=== PATIENT | female | born 1960 | race Caucasian/White ===

== ENCOUNTER 2018-03-31 03:01 | Inpatient (IN) ==
[2018-03-31] MEDS ORDERED: Sod Chloride 0.9% Inj 1,000 ML IV.SIG SCH (03:30)
[2018-03-31 03:49] LABS: Baso % (Auto) 0.1 % (0.0-2.0); Hematocrit 40.1 % (35.0-46.0); Hemoglobin 13.8 gm/dL (11.6-15.3); Lymph # (Auto) 0.8 th/mm3 (1.0-4.8); Lymph % (Auto) 5.3 % (9.0-44.0); Mean Corpuscular HGB Conc 34.4 % (32.0-36.0); Mean Corpuscular Hemoglobin 28.5 pg (27.0-34.0); Mean Corpuscular Volume 82.9 fL (80.0-100.0); Mean Platelet Volume 10.3 fL (7.0-11.0); Mono # (Auto) 0.3 th/mm3 (0.0-0.9); Mono % (Auto) 1.9 % (0.0-8.0); Neut # (Auto) 14.1 th/mm3 (1.8-7.7); Neut % (Auto) 92.7 % (16.0-70.0); Platelet Count 260 th/mm3 (150-450); Red Blood Count 4.84 mil/mm3 (4.00-5.30); Red Cell Distribution Width 14.5 % (11.6-17.2); White Blood Count 15.2 th/mm3 (4.0-11.0)
[2018-03-31] MEDS ORDERED: Piperacil/Tazo 4.5 GM Premix 4.5 GM/100 ML BAG IV.SIG ONE (03:54)
[2018-03-31] MEDS ORDERED: Vancomycin Inj 1 GM/200 ML PIGGYBACK IV.SIG ONE (03:54)
--- NOTE | 2018-03-31 04:02 | XR ---
EXAM DATE: 03/31/2018 3:23 AM EDT AGE/SEX: 58 years / Female INDICATIONS: Fever. Altered mental status. CLINICAL DATA: This is the patient's initial encounter. Patient reports that signs and symptoms have been present for 1 day and indicates a pain score of Nonresponsive. MEDICAL/SURGICAL HISTORY: . Diabetes. Hypertension. section. COMPARISON: No prior exams available for comparison. FINDINGS: A single AP view of the chest demonstrates the lungs to be symmetrically aerated without evidence of mass, infiltrate or effusion. The cardiomediastinal contours are unremarkable. Osseous structures a re intact. CONCLUSION: No acute cardiopulmonary process. Electronically signed by: Tavo Funez MD 03/31/2018 4:00 AM EDT
[2018-03-31 04:05] LABS: Bacteria,Urine Rare /hpf; Bilirubin,Urine Negative (Negative); Clarity,Urine Hazy (Clear); Color,Urine Yellow (Yellw/Straw); Glucose,Urine (UA) Negative (Negative); Leukocyte Esterase,Urine Trace (Negative); Mucus,Urine Few /lpf (Occasional); Nitrite,Urine Negative (Negative); Specific Gravity,Urine 1.025 (1.002-1.035); Squamous Epithelial Cell,Urine 1 /hpf (0-5)
[2018-03-31 04:06] LABS: Amphetamine Screen,Urine Pos (Neg); Barbiturate Screen,Urine Neg (Neg); Cannabinoid Screen,Urine Neg (Neg); Cocaine Screen,Urine Neg (Neg)
[2018-03-31 04:13] LABS: Alanine Aminotransferase 24 U/L (10-53); Albumin 4.1 g/dL (3.4-5.0); Alkaline Phosphatase 120 U/L (45-117); Anion Gap 10 meq/L (5-15); Aspartate Aminotransferase 22 U/L (15-37); Blood Urea Nitrogen 19 mg/dL (7-18); Calcium 8.9 mg/dL (8.5-10.1); Carbon Dioxide 24.5 meq/L (21.0-32.0); Chloride 106 meq/L (98-107); Glomerular Filtration Rate 61 mL/min (>89); Glucose,Random 153 mg/dL (74-106); Magnesium 1.9 mg/dL (1.5-2.5); Potassium 4.2 meq/L (3.5-5.1); Sodium 140 meq/L (136-145); Total Protein 8.2 g/dL (6.4-8.2)
[2018-03-31 04:15] LABS: Opiate Screen,Urine Neg (Neg)
[2018-03-31] MEDS ORDERED: Vancomycin Inj 1,000 MG in Sodium Chlor 0.9% Inj 250 ML IV.SIG ONE (04:15)
--- NOTE | 2018-03-31 04:25 | CT ---
EXAM DATE: 03/31/2018 3:26 AM EDT AGE/SEX: 58 years / Female INDICATIONS: Altered mental status. CLINICAL DATA: This is the patient's initial encounter. Patient reports that signs and symptoms have been present for 1 day and indicates a pain score of Nonresponsive. MEDICAL/SURGICAL HISTORY: Non-responsive. Non-responsive. RADIATION DOSE: 56.35 CTDI (mGy) COMPARISON: [facility] – [place], [place] HEAD W/O CONTRAST, 12/09/2017. . TECHNIQUE: CT of the head without contrast. Using automated exposure control and adjustment of the mA and/or kV according to patient size, radiation dose was kept as low as reasonably achievable to ob tain optimal diagnostic quality images. DICOM format image data is available electronically for revi ew and comparison. FINDINGS: Cerebrum: The ventricles are mildly dilated No evidence of midline shift, mass lesion, hemorrhage o r acute infarction. No extraaxial fluid collections are seen. Posterior Fossa: The cerebellum and brainstem are intact. The 4th ventricle is midline. The cerebe llopontine angle is unremarkable. Extracranial: The visualized portion of the orbits is intact. Skull: The calvaria is intact. No evidence of skull fracture. CONCLUSION: 1. No acute abnormality is seen. 2. Mild atrophy. . Electronically signed by: Tavo Funez MD 03/31/2018 4:23 AM EDT
--- NOTE | 2018-03-31 05:33 | ED ---
HPI General Chief Complaint: Altered Mental Status Stated Complaint: mental status Time Seen by Provider: 03/31/18 03:23 Source: EMS Mode of arrival: EMS Limitations: altered mental status History of Present Illness HPI narrative: 58-year-old female came to the emergency room by EMS for altered mental status. Patient was constantly screaming with a high-pitched sound and was difficult to comprehend. She was not following commands. As per EMS she was like this the entire right. Her called 911 since as per him she became like this couple hours prior to him calling EMS. This is not her baseline. The also mentioned that she was seen in the emergency room 2 days ago and was diagnosed with UTI. She was discharged home on antibiotic but the prescription was not filled. Patient was combative upon arrival. The last time patient was seen normal was not confirmed at this point. The was not present with her or in the department. MD complaint: Reports altered mental status Onset (ago): unknown Consistency of symptoms: waxing and waning Related Data Home Medications Medication Instructions Recorded Confirmed insulin glargine [Lantus U-100 22 unit SUB-Q DAILY 12/09/17 03/22/18 Insulin] Previous Rx's Medication Instructions Recorded bupropion HCl [Wellbutrin XL] 300 mg PO QAM #3 tab 03/22/18 levothyroxine [Synthroid] 25 mcg PO DAILY #3 tab 03/22/18 ranitidine HCl [Zantac] 150 mg PO BID #14 tab 03/22/18 insulin aspart U-100 [Novolog See Label Instructions .ROUTE 03/29/18 Flexpen U-100 Insulin] .COMPLEX #15 ml levofloxacin [Levaquin] 750 mg PO DAILY #7 tab 04/02/18 Allergies Allergy/AdvReac Type Severity Reaction Status Date / Time No Known Allergies Allergy Unverified 03/31/18 03:04 Review of Systems ROS Unobtainable ROS Unobtainable: unobtainable due to mental status ROS: all other systems reviewed are negative FOR[facility]LY [facility] Medical History Medical History Cataract (Acute) delivery delivered (Acute) Depressed (Acute) Diabetes (Acute) Hypertension (Acute) Hypothyroid (Acute) Social History Social History Substance History: Unable to Obtain Second Hand Smoke Exposure: No Smoking Status: Cognitive impairment How Often Do You Have a Drink Containing Alcohol: Unable to Obtain Recent Travel in [place] within the Last 8 Weeks: No Recent Out of Country Travel within the Last 8 Weeks: No Immunization History Tetanus Immunization: Unable to Assess Exam Narrative Exam Narrative: GENERAL: Altered mental status, combative, agitated, not following commands, significant distress SKIN: Focused skin assessment warm/dry. Disheveled HEAD: Atraumatic. Normocephalic. EYES: Pupils equal and round. No scleral icterus. No injection or drainage. ENT: No nasal bleeding or discharge. Dry mucous membrane and coated tongue NECK: Trachea midline. No JVD. CARDIOVASCULAR: Regular rate and rhythm. No murmur appreciated. RESPIRATORY: No accessory muscle use. Clear to auscultation. Breath sounds equal bilaterally. GASTROINTESTINAL: Abdomen soft, non-tender, nondistended. Hepatic and splenic margins not palpable. MUSCULOSKELETAL: No obvious deformities. No clubbing. No cyanosis. No edema. NEUROLOGICAL: GCS of 12 PSYCHIATRIC: Agitated, poor insight and judgment Course Initial Documented Vital Signs Pulse Rate 118 H 03/31/18 03:06 Respiratory Rate 18 03/31/18 03:06 Pulse Oximetry 97 03/31/18 03:06 Last Documented Vital Signs Temperature 98.8 F 04/02/18 12:00 Pulse Rate 70 04/02/18 12:00 Respiratory Rate 20 04/02/18 12:00 Blood Pressure 145/85 H 04/02/18 12:00 Pulse Oximetry 99 04/02/18 12:00 Critical Care Time Critical Care Time: Yes Total Critical Care Time: 45 Attestation: Aggregate critical care time was 45 minutes. Time to perform other separately billable procedures was not included in the critical care time. My time did not include minutes spent treating any other patients simultaneously or on activities that did not directly contribute to the patient's treatment. The services I provided to this patient were to treat and/or prevent clinically significant deterioration that could result in: Altered mental status, delirium, rule out meningitis, sepsis I provided critical care services requiring my management, as noted below: Chart data review, documentation time, medication orders and management, vital sign assessments/reviewing monitor data, ordering and reviewing lab tests, ordering and interpreting/reviewing x-rays and diagnostic studies, care of the patient and discussion of the patient with the admitting physicians. Medical Decision Making MDM Narrative Medical decision making narrative: Patient's medical record was reviewed on the computer. On the visit of 03/29/2018 it was noticed on physician's documentation the patient was fully alert, oriented and answering questions appropriately. The urine culture is growing gram-negative rods. Given her acute mental status change and noncompliance to antibiotic sepsis and meningitis was heavily considered. Patient was given IV antibiotics for those. White blood cell count was elevated with significant left shift. Eventually when rest of the blood test results started to come back it was noticed that lactic acid however was negative. Urine drug screen is positive for amphetamines which certainly could cause her present symptoms. Patient was given 2 mg of IV Ativan 1 hours apart which has calmed the patient down appropriately at this point. She is maintaining her airway well. Vital signs are stable. I decided to admit her to the intensive care unit. I discussed the case with Dr. Bhat who was accepted the patient. He will order an IR directed spinal tap for the patient to rule out meningitis. Her head CT and chest x-ray were within normal limits. Medical Screen Exam Complete: Yes Emergency Medical Condition: Yes Lab Data Result diagrams: 04/02/18 06:45 04/02/18 05:39 Lab Results 03/31/18 03/31/18 03/31/18 Range/Units 03:30 03:30 03:35 WBC 15.2 H (4.0-11.0) th/mm3 RBC 4.84 (4.00-5.30) mil/mm3 Hgb 13.8 (11.6-15.3) gm/dL Hct 40.1 (35.0-46.0) % MCV 82.9 (80.0-100.0) fL MCH 28.5 (27.0-34.0) pg MCHC 34.4 (32.0-36.0) % RDW 14.5 (11.6-17.2) % Plt Count 260 (150-450) th/mm3 MPV 10.3 (7.0-11.0) fL Neut % (Auto) 92.7 H (16.0-70.0) % Lymph % (Auto) 5.3 L (9.0-44.0) % [place] % (Auto) 1.9 (0.0-8.0) % Eos % (Auto) 0.0 (0.0-4.0) % Baso % (Auto) 0.1 (0.0-2.0) % Neut # (Auto) 14.1 H (1.8-7.7) th/mm3 Lymph # (Auto) 0.8 L (1.0-4.8) th/mm3 [place] # (Auto) 0.3 (0.0-0.9) th/mm3 Eos # (Auto) 0.0 (0.0-0.4) th/mm3 Baso # (Auto) 0.0 (0.0-0.2) th/mm3 WBC Differential . Differential Comment Auto diff final PT (9.8-11.6) sec INR Ratio APTT (24.3-30.1) sec Sodium (136-145) meq/L Potassium (3.5-5.1) meq/L Chloride (98-107) meq/L Carbon Dioxide (21.0-32.0) meq/L Anion Gap (5-15) meq/L BUN (7-18) mg/dL Creatinine (0.50-1.00) mg/dL Estimated GFR (>89) mL/min POC Glucose (68-110) mg/dl Random Glucose (74-106) mg/dL Hemoglobin A1c (4.3-6.0) % Lactic Acid (0.4-2.0) mmol/L Calcium (8.5-10.1) mg/dL Phosphorus (2.5-4.9) mg/dL Magnesium (1.5-2.5) mg/dL Total Bilirubin (0.2-1.0) mg/dL AST (15-37) U/L ALT (10-53) U/L Alkaline Phosphatase (45-117) U/L Ammonia (11-32) mcmol/L Total Protein (6.4-8.2) g/dL Albumin (3.4-5.0) g/dL Amylase (25-115) U/L TSH (0.358-3.740) uIU/mL Free T4 (0.76-1.46) ng/dL Urine Color Yellow (Yellw/Straw) Urine Clarity Hazy H (Clear) Urine pH 5.0 (5.0-8.5) Ur Specific [place] 1.025 (1.002-1.035) Urine Protein 30 H (Neg-Trace) mg/dL Urine Glucose (UA) Negative (Negative) mg/dL Urine Ketones 20 (Negative) mg/dL Urine Occult Blood Negative (Negative) Urine Nitrate Negative (Negative) Urine Bilirubin Negative (Negative) Urine Urobilinogen Less than 2 (Less than 2) mg/dL Ur Leukocyte Esterase Trace H (Negative) Urine RBC 1 (0-3) /hpf Urine WBC 15 H (0-5) /hpf Ur Squamous Epith Cells 1 (0-5) /hpf Urine Bacteria Rare H (None) /hpf Urine Mucus Few H (Occasional) /lpf Micro UA Comment Cath-culture ind Ur Microscopic Review Not Reportable Urine Culture Comments Cath-cult indicated Nasal Screen MRSA (PCR) (Negative) Urine Opiates Screen Neg (Neg) Ur Barbiturates Screen Neg (Neg) Ur Amphetamines Screen Pos H (Neg) U Benzodiazepines Scrn Neg (Neg) Urine Cocaine Screen Neg (Neg) U Cannabinoids Screen Neg (Neg) Serum Alcohol (0-5) mg/dL Hepatitis A IgM Ab (Nonreactive) Hep Bs Antigen (Nonreactive) Hep B Core IgM Ab (Nonreactive) Hep C IgG Ab (Nonreactive) 03/31/18 03/31/18 03/31/18 Range/Units 03:35 03:35 07:14 WBC (4.0-11.0) th/mm3 RBC (4.00-5.30) mil/mm3 Hgb (11.6-15.3) gm/dL Hct (35.0-46.0) % MCV (80.0-100.0) fL MCH (27.0-34.0) pg MCHC (32.0-36.0) % RDW (11.6-17.2) % Plt Count (150-450) th/mm3 MPV (7.0-11.0) fL Neut % (Auto) (16.0-70.0) % Lymph % (Auto) (9.0-44.0) % [place] % (Auto) (0.0-8.0) % Eos % (Auto) (0.0-4.0) % Baso % (Auto) (0.0-2.0) % Neut # (Auto) (1.8-7.7) th/mm3 Lymph # (Auto) (1.0-4.8) th/mm3 [place] # (Auto) (0.0-0.9) th/mm3 Eos # (Auto) (0.0-0.4) th/mm3 Baso # (Auto) (0.0-0.2) th/mm3 WBC Differential Differential Comment PT (9.8-11.6) sec INR Ratio APTT (24.3-30.1) sec Sodium 140 (136-145) meq/L Potassium 4.2 (3.5-5.1) meq/L Chloride 106 (98-107) meq/L Carbon Dioxide 24.5 (21.0-32.0) meq/L Anion Gap 10 (5-15) meq/L BUN 19 H (7-18) mg/dL Creatinine 0.95 (0.50-1.00) mg/dL Estimated GFR 61 L (>89) mL/min POC Glucose 110 (68-110) mg/dl Random Glucose 153 H (74-106) mg/dL Hemoglobin A1c (4.3-6.0) % Lactic Acid 2.0 (0.4-2.0) mmol/L Calcium 8.9 D (8.5-10.1) mg/dL Phosphorus (2.5-4.9) mg/dL Magnesium 1.9 (1.5-2.5) mg/dL Total Bilirubin 0.4 (0.2-1.0) mg/dL AST 22 (15-37) U/L ALT 24 (10-53) U/L Alkaline Phosphatase 120 H (45-117) U/L Ammonia (11-32) mcmol/L Total Protein 8.2 D (6.4-8.2) g/dL Albumin 4.1 D (3.4-5.0) g/dL Amylase (25-115) U/L TSH (0.358-3.740) uIU/mL Free T4 (0.76-1.46) ng/dL Urine Color (Yellw/Straw) Urine Clarity (Clear) Urine pH (5.0-8.5) Ur Specific [place] (1.002-1.035) Urine Protein (Neg-Trace) mg/dL Urine Glucose (UA) (Negative) mg/dL Urine Ketones (Negative) mg/dL Urine Occult Blood (Negative) Urine Nitrate (Negative) Urine Bilirubin (Negative) Urine Urobilinogen (Less than 2) mg/dL Ur Leukocyte Esterase (Negative) Urine RBC (0-3) /hpf Urine WBC (0-5) /hpf Ur Squamous Epith Cells (0-5) /hpf Urine Bacteria (None) /hpf Urine Mucus (Occasional) /lpf Micro UA Comment Ur Microscopic Review Urine Culture Comments Nasal Screen MRSA (PCR) (Negative) Urine Opiates Screen (Neg) Ur Barbiturates Screen (Neg) Ur Amphetamines Screen (Neg) U Benzodiazepines Scrn (Neg) Urine Cocaine Screen (Neg) U Cannabinoids Screen (Neg) Serum Alcohol Less than 3 (0-5) mg/dL Hepatitis A IgM Ab (Nonreactive) Hep Bs Antigen (Nonreactive) Hep B Core IgM Ab (Nonreactive) Hep C IgG Ab (Nonreactive) 03/31/18 03/31/18 03/31/18 Range/Units 08:45 09:13 11:47 WBC (4.0-11.0) th/mm3 RBC (4.00-5.30) mil/mm3 Hgb (11.6-15.3) gm/dL Hct (35.0-46.0) % MCV (80.0-100.0) fL MCH (27.0-34.0) pg MCHC (32.0-36.0) % RDW (11.6-17.2) % Plt Count (150-450) th/mm3 MPV (7.0-11.0) fL Neut % (Auto) (16.0-70.0) % Lymph % (Auto) (9.0-44.0) % [place] % (Auto) (0.0-8.0) % Eos % (Auto) (0.0-4.0) % Baso % (Auto) (0.0-2.0) % Neut # (Auto) (1.8-7.7) th/mm3 Lymph # (Auto) (1.0-4.8) th/mm3 [place] # (Auto) (0.0-0.9) th/mm3 Eos # (Auto) (0.0-0.4) th/mm3 Baso # (Auto) (0.0-0.2) th/mm3 WBC Differential Differential Comment PT (9.8-11.6) sec INR Ratio APTT (24.3-30.1) sec Sodium (136-145) meq/L Potassium (3.5-5.1) meq/L Chloride (98-107) meq/L Carbon Dioxide (21.0-32.0) meq/L Anion Gap (5-15) meq/L BUN (7-18) mg/dL Creatinine (0.50-1.00) mg/dL Estimated GFR (>89) mL/min POC Glucose 80 58 L (68-110) mg/dl Random Glucose (74-106) mg/dL Hemoglobin A1c (4.3-6.0) % Lactic Acid (0.4-2.0) mmol/L Calcium (8.5-10.1) mg/dL Phosphorus (2.5-4.9) mg/dL Magnesium (1.5-2.5) mg/dL Total Bilirubin (0.2-1.0) mg/dL AST (15-37) U/L ALT (10-53) U/L Alkaline Phosphatase (45-117) U/L Ammonia (11-32) mcmol/L Total Protein (6.4-8.2) g/dL Albumin (3.4-5.0) g/dL Amylase (25-115) U/L TSH (0.358-3.740) uIU/mL Free T4 (0.76-1.46) ng/dL Urine Color (Yellw/Straw) Urine Clarity (Clear) Urine pH (5.0-8.5) Ur Specific [place] (1.002-1.035) Urine Protein (Neg-Trace) mg/dL Urine Glucose (UA) (Negative) mg/dL Urine Ketones (Negative) mg/dL Urine Occult Blood (Negative) Urine Nitrate (Negative) Urine Bilirubin (Negative) Urine Urobilinogen (Less than 2) mg/dL Ur Leukocyte Esterase (Negative) Urine RBC (0-3) /hpf Urine WBC (0-5) /hpf Ur Squamous Epith Cells (0-5) /hpf Urine Bacteria (None) /hpf Urine Mucus (Occasional) /lpf Micro UA Comment Ur Microscopic Review Urine Culture Comments Nasal Screen MRSA (PCR) Not detected (Negative) Urine Opiates Screen (Neg) Ur Barbiturates Screen (Neg) Ur Amphetamines Screen (Neg) U Benzodiazepines Scrn (Neg) Urine Cocaine Screen (Neg) U Cannabinoids Screen (Neg) Serum Alcohol (0-5) mg/dL Hepatitis A IgM Ab (Nonreactive) Hep Bs Antigen (Nonreactive) Hep B Core IgM Ab (Nonreactive) Hep C IgG Ab (Nonreactive) 03/31/18 03/31/18 03/31/18 Range/Units 12:10 16:52 18:57 WBC (4.0-11.0) th/mm3 RBC (4.00-5.30) mil/mm3 Hgb (11.6-15.3) gm/dL Hct (35.0-46.0) % MCV (80.0-100.0) fL MCH (27.0-34.0) pg MCHC (32.0-36.0) % RDW (11.6-17.2) % Plt Count (150-450) th/mm3 MPV (7.0-11.0) fL Neut % (Auto) (16.0-70.0) % Lymph % (Auto) (9.0-44.0) % [place] % (Auto) (0.0-8.0) % Eos % (Auto) (0.0-4.0) % Baso % (Auto) (0.0-2.0) % Neut # (Auto) (1.8-7.7) th/mm3 Lymph # (Auto) (1.0-4.8) th/mm3 [place] # (Auto) (0.0-0.9) th/mm3 Eos # (Auto) (0.0-0.4) th/mm3 Baso # (Auto) (0.0-0.2) th/mm3 WBC Differential Differential Comment PT (9.8-11.6) sec INR Ratio APTT (24.3-30.1) sec Sodium (136-145) meq/L Potassium (3.5-5.1) meq/L Chloride (98-107) meq/L Carbon Dioxide (21.0-32.0) meq/L Anion Gap (5-15) meq/L BUN (7-18) mg/dL Creatinine (0.50-1.00) mg/dL Estimated GFR (>89) mL/min POC Glucose 172 H 265 H (68-110) mg/dl Random Glucose (74-106) mg/dL Hemoglobin A1c (4.3-6.0) % Lactic Acid (0.4-2.0) mmol/L Calcium (8.5-10.1) mg/dL Phosphorus (2.5-4.9) mg/dL Magnesium (1.5-2.5) mg/dL Total Bilirubin (0.2-1.0) mg/dL AST (15-37) U/L ALT (10-53) U/L Alkaline Phosphatase (45-117) U/L Ammonia (11-32) mcmol/L Total Protein (6.4-8.2) g/dL Albumin (3.4-5.0) g/dL Amylase (25-115) U/L TSH (0.358-3.740) uIU/mL Free T4 (0.76-1.46) ng/dL Urine Color (Yellw/Straw) Urine Clarity (Clear) Urine pH (5.0-8.5) Ur Specific [place] (1.002-1.035) Urine Protein (Neg-Trace) mg/dL Urine Glucose (UA) (Negative) mg/dL Urine Ketones (Negative) mg/dL Urine Occult Blood (Negative) Urine Nitrate (Negative) Urine Bilirubin (Negative) Urine Urobilinogen (Less than 2) mg/dL Ur Leukocyte Esterase (Negative) Urine RBC (0-3) /hpf Urine WBC (0-5) /hpf Ur Squamous Epith Cells (0-5) /hpf Urine Bacteria (None) /hpf Urine Mucus (Occasional) /lpf Micro UA Comment Ur Microscopic Review Urine Culture Comments Nasal Screen MRSA (PCR) (Negative) Urine Opiates Screen (Neg) Ur Barbiturates Screen (Neg) Ur Amphetamines Screen (Neg) U Benzodiazepines Scrn (Neg) Urine Cocaine Screen (Neg) U Cannabinoids Screen (Neg) Serum Alcohol (0-5) mg/dL Hepatitis A IgM Ab Nonreactive (Nonreactive) Hep Bs Antigen Nonreactive (Nonreactive) Hep B Core IgM Ab Nonreactive (Nonreactive) Hep C IgG Ab Nonreactive (Nonreactive) 03/31/18 03/31/18 04/01/18 Range/Units 19:57 21:32 03:05 WBC (4.0-11.0) th/mm3 RBC (4.00-5.30) mil/mm3 Hgb (11.6-15.3) gm/dL Hct (35.0-46.0) % MCV (80.0-100.0) fL MCH (27.0-34.0) pg MCHC (32.0-36.0) % RDW (11.6-17.2) % Plt Count (150-450) th/mm3 MPV (7.0-11.0) fL Neut % (Auto) (16.0-70.0) % Lymph % (Auto) (9.0-44.0) % [place] % (Auto) (0.0-8.0) % Eos % (Auto) (0.0-4.0) % Baso % (Auto) (0.0-2.0) % Neut # (Auto) (1.8-7.7) th/mm3 Lymph # (Auto) (1.0-4.8) th/mm3 [place] # (Auto) (0.0-0.9) th/mm3 Eos # (Auto) (0.0-0.4) th/mm3 Baso # (Auto) (0.0-0.2) th/mm3 WBC Differential Differential Comment PT (9.8-11.6) sec INR Ratio APTT (24.3-30.1) sec Sodium (136-145) meq/L Potassium (3.5-5.1) meq/L Chloride (98-107) meq/L Carbon Dioxide (21.0-32.0) meq/L Anion Gap (5-15) meq/L BUN (7-18) mg/dL Creatinine (0.50-1.00) mg/dL Estimated GFR (>89) mL/min POC Glucose 63 L 91 347 H (68-110) mg/dl Random Glucose (74-106) mg/dL Hemoglobin A1c (4.3-6.0) % Lactic Acid (0.4-2.0) mmol/L Calcium (8.5-10.1) mg/dL Phosphorus (2.5-4.9) mg/dL Magnesium (1.5-2.5) mg/dL Total Bilirubin (0.2-1.0) mg/dL AST (15-37) U/L ALT (10-53) U/L Alkaline Phosphatase (45-117) U/L Ammonia (11-32) mcmol/L Total Protein (6.4-8.2) g/dL Albumin (3.4-5.0) g/dL Amylase (25-115) U/L TSH (0.358-3.740) uIU/mL Free T4 (0.76-1.46) ng/dL Urine Color (Yellw/Straw) Urine Clarity (Clear) Urine pH (5.0-8.5) Ur Specific [place] (1.002-1.035) Urine Protein (Neg-Trace) mg/dL Urine Glucose (UA) (Negative) mg/dL Urine Ketones (Negative) mg/dL Urine Occult Blood (Negative) Urine Nitrate (Negative) Urine Bilirubin (Negative) Urine Urobilinogen (Less than 2) mg/dL Ur Leukocyte Esterase (Negative) Urine RBC (0-3) /hpf Urine WBC (0-5) /hpf Ur Squamous Epith Cells (0-5) /hpf Urine Bacteria (None) /hpf Urine Mucus (Occasional) /lpf Micro UA Comment Ur Microscopic Review Urine Culture Comments Nasal Screen MRSA (PCR) (Negative) Urine Opiates Screen (Neg) Ur Barbiturates Screen (Neg) Ur Amphetamines Screen (Neg) U Benzodiazepines Scrn (Neg) Urine Cocaine Screen (Neg) U Cannabinoids Screen (Neg) Serum Alcohol (0-5) mg/dL Hepatitis A IgM Ab (Nonreactive) Hep Bs Antigen (Nonreactive) Hep B Core IgM Ab (Nonreactive) Hep C IgG Ab (Nonreactive) 04/01/18 04/01/18 04/01/18 Range/Units 06:41 06:41 06:41 WBC 5.5 (4.0-11.0) th/mm3 RBC 3.90 L (4.00-5.30) mil/mm3 Hgb 11.0 L D (11.6-15.3) gm/dL Hct 33.1 L (35.0-46.0) % MCV 85.0 (80.0-100.0) fL MCH 28.2 (27.0-34.0) pg MCHC 33.2 (32.0-36.0) % RDW 14.8 (11.6-17.2) % Plt Count 155 D (150-450) th/mm3 MPV 10.2 (7.0-11.0) fL Neut % (Auto) 71.7 H (16.0-70.0) % Lymph % (Auto) 17.7 (9.0-44.0) % [place] % (Auto) 8.7 H (0.0-8.0) % Eos % (Auto) 1.1 (0.0-4.0) % Baso % (Auto) 0.8 (0.0-2.0) % Neut # (Auto) 3.9 (1.8-7.7) th/mm3 Lymph # (Auto) 1.0 (1.0-4.8) th/mm3 [place] # (Auto) 0.5 (0.0-0.9) th/mm3 Eos # (Auto) 0.1 (0.0-0.4) th/mm3 Baso # (Auto) 0.0 (0.0-0.2) th/mm3 WBC Differential . Differential Comment Auto diff final PT 11.4 (9.8-11.6) sec INR 1.1 Ratio APTT 25.5 (24.3-30.1) sec Sodium (136-145) meq/L Potassium (3.5-5.1) meq/L Chloride (98-107) meq/L Carbon Dioxide (21.0-32.0) meq/L Anion Gap (5-15) meq/L BUN (7-18) mg/dL Creatinine (0.50-1.00) mg/dL Estimated GFR (>89) mL/min POC Glucose (68-110) mg/dl Random Glucose (74-106) mg/dL Hemoglobin A1c 8.7 H (4.3-6.0) % Lactic Acid (0.4-2.0) mmol/L Calcium (8.5-10.1) mg/dL Phosphorus (2.5-4.9) mg/dL Magnesium (1.5-2.5) mg/dL Total Bilirubin (0.2-1.0) mg/dL AST (15-37) U/L ALT (10-53) U/L Alkaline Phosphatase (45-117) U/L Ammonia (11-32) mcmol/L Total Protein (6.4-8.2) g/dL Albumin (3.4-5.0) g/dL Amylase (25-115) U/L TSH (0.358-3.740) uIU/mL Free T4 (0.76-1.46) ng/dL Urine Color (Yellw/Straw) Urine Clarity (Clear) Urine pH (5.0-8.5) Ur Specific [place] (1.002-1.035) Urine Protein (Neg-Trace) mg/dL Urine Glucose (UA) (Negative) mg/dL Urine Ketones (Negative) mg/dL Urine Occult Blood (Negative) Urine Nitrate (Negative) Urine Bilirubin (Negative) Urine Urobilinogen (Less than 2) mg/dL Ur Leukocyte Esterase (Negative) Urine RBC (0-3) /hpf Urine WBC (0-5) /hpf Ur Squamous Epith Cells (0-5) /hpf Urine Bacteria (None) /hpf Urine Mucus (Occasional) /lpf Micro UA Comment Ur Microscopic Review Urine Culture Comments Nasal Screen MRSA (PCR) (Negative) Urine Opiates Screen (Neg) Ur Barbiturates Screen (Neg) Ur Amphetamines Screen (Neg) U Benzodiazepines Scrn (Neg) Urine Cocaine Screen (Neg) U Cannabinoids Screen (Neg) Serum Alcohol (0-5) mg/dL Hepatitis A IgM Ab (Nonreactive) Hep Bs Antigen (Nonreactive) Hep B Core IgM Ab (Nonreactive) Hep C IgG Ab (Nonreactive) 04/01/18 04/01/18 04/01/18 Range/Units 06:41 06:41 07:42 WBC (4.0-11.0) th/mm3 RBC (4.00-5.30) mil/mm3 Hgb (11.6-15.3) gm/dL Hct (35.0-46.0) % MCV (80.0-100.0) fL MCH (27.0-34.0) pg MCHC (32.0-36.0) % RDW (11.6-17.2) % Plt Count (150-450) th/mm3 MPV (7.0-11.0) fL Neut % (Auto) (16.0-70.0) % Lymph % (Auto) (9.0-44.0) % [place] % (Auto) (0.0-8.0) % Eos % (Auto) (0.0-4.0) % Baso % (Auto) (0.0-2.0) % Neut # (Auto) (1.8-7.7) th/mm3 Lymph # (Auto) (1.0-4.8) th/mm3 [place] # (Auto) (0.0-0.9) th/mm3 Eos # (Auto) (0.0-0.4) th/mm3 Baso # (Auto) (0.0-0.2) th/mm3 WBC Differential Differential Comment PT (9.8-11.6) sec INR Ratio APTT (24.3-30.1) sec Sodium 138 (136-145) meq/L Potassium 4.2 (3.5-5.1) meq/L Chloride 108 H (98-107) meq/L Carbon Dioxide 19.4 L (21.0-32.0) meq/L Anion Gap 11 (5-15) meq/L BUN 10 (7-18) mg/dL Creatinine 0.87 (0.50-1.00) mg/dL Estimated GFR 67 L (>89) mL/min POC Glucose 467 H* (68-110) mg/dl Random Glucose 400 H D (74-106) mg/dL Hemoglobin A1c (4.3-6.0) % Lactic Acid (0.4-2.0) mmol/L Calcium 7.5 L D (8.5-10.1) mg/dL Phosphorus 1.6 L (2.5-4.9) mg/dL Magnesium 1.6 (1.5-2.5) mg/dL Total Bilirubin 0.4 (0.2-1.0) mg/dL AST 18 (15-37) U/L ALT 18 (10-53) U/L Alkaline Phosphatase 84 (45-117) U/L Ammonia 17 (11-32) mcmol/L Total Protein 5.9 L D (6.4-8.2) g/dL Albumin 2.7 L D (3.4-5.0) g/dL Amylase 35 (25-115) U/L TSH 2.910 (0.358-3.740) uIU/mL Free T4 0.85 (0.76-1.46) ng/dL Urine Color (Yellw/Straw) Urine Clarity (Clear) Urine pH (5.0-8.5) Ur Specific [place] (1.002-1.035) Urine Protein (Neg-Trace) mg/dL Urine Glucose (UA) (Negative) mg/dL Urine Ketones (Negative) mg/dL Urine Occult Blood (Negative) Urine Nitrate (Negative) Urine Bilirubin (Negative) Urine Urobilinogen (Less than 2) mg/dL Ur Leukocyte Esterase (Negative) Urine RBC (0-3) /hpf Urine WBC (0-5) /hpf Ur Squamous Epith Cells (0-5) /hpf Urine Bacteria (None) /hpf Urine Mucus (Occasional) /lpf Micro UA Comment Ur Microscopic Review Urine Culture Comments Nasal Screen MRSA (PCR) (Negative) Urine Opiates Screen (Neg) Ur Barbiturates Screen (Neg) Ur Amphetamines Screen (Neg) U Benzodiazepines Scrn (Neg) Urine Cocaine Screen (Neg) U Cannabinoids Screen (Neg) Serum Alcohol (0-5) mg/dL Hepatitis A IgM Ab (Nonreactive) Hep Bs Antigen (Nonreactive) Hep B Core IgM Ab (Nonreactive) Hep C IgG Ab (Nonreactive) 04/01/18 04/01/18 04/01/18 Range/Units 11:44 16:50 21:26 WBC (4.0-11.0) th/mm3 RBC (4.00-5.30) mil/mm3 Hgb (11.6-15.3) gm/dL Hct (35.0-46.0) % MCV (80.0-100.0) fL MCH (27.0-34.0) pg MCHC (32.0-36.0) % RDW (11.6-17.2) % Plt Count (150-450) th/mm3 MPV (7.0-11.0) fL Neut % (Auto) (16.0-70.0) % Lymph % (Auto) (9.0-44.0) % [place] % (Auto) (0.0-8.0) % Eos % (Auto) (0.0-4.0) % Baso % (Auto) (0.0-2.0) % Neut # (Auto) (1.8-7.7) th/mm3 Lymph # (Auto) (1.0-4.8) th/mm3 [place] # (Auto) (0.0-0.9) th/mm3 Eos # (Auto) (0.0-0.4) th/mm3 Baso # (Auto) (0.0-0.2) th/mm3 WBC Differential Differential Comment PT (9.8-11.6) sec INR Ratio APTT (24.3-30.1) sec Sodium (136-145) meq/L Potassium (3.5-5.1) meq/L Chloride (98-107) meq/L Carbon Dioxide (21.0-32.0) meq/L Anion Gap (5-15) meq/L BUN (7-18) mg/dL Creatinine (0.50-1.00) mg/dL Estimated GFR (>89) mL/min POC Glucose 172 H 108 326 H (68-110) mg/dl Random Glucose (74-106) mg/dL Hemoglobin A1c (4.3-6.0) % Lactic Acid (0.4-2.0) mmol/L Calcium (8.5-10.1) mg/dL Phosphorus (2.5-4.9) mg/dL Magnesium (1.5-2.5) mg/dL Total Bilirubin (0.2-1.0) mg/dL AST (15-37) U/L ALT (10-53) U/L Alkaline Phosphatase (45-117) U/L Ammonia (11-32) mcmol/L Total Protein (6.4-8.2) g/dL Albumin (3.4-5.0) g/dL Amylase (25-115) U/L TSH (0.358-3.740) uIU/mL Free T4 (0.76-1.46) ng/dL Urine Color (Yellw/Straw) Urine Clarity (Clear) Urine pH (5.0-8.5) Ur Specific [place] (1.002-1.035) Urine Protein (Neg-Trace) mg/dL Urine Glucose (UA) (Negative) mg/dL Urine Ketones (Negative) mg/dL Urine Occult Blood (Negative) Urine Nitrate (Negative) Urine Bilirubin (Negative) Urine Urobilinogen (Less than 2) mg/dL Ur Leukocyte Esterase (Negative) Urine RBC (0-3) /hpf Urine WBC (0-5) /hpf Ur Squamous Epith Cells (0-5) /hpf Urine Bacteria (None) /hpf Urine Mucus (Occasional) /lpf Micro UA Comment Ur Microscopic Review Urine Culture Comments Nasal Screen MRSA (PCR) (Negative) Urine Opiates Screen (Neg) Ur Barbiturates Screen (Neg) Ur Amphetamines Screen (Neg) U Benzodiazepines Scrn (Neg) Urine Cocaine Screen (Neg) U Cannabinoids Screen (Neg) Serum Alcohol (0-5) mg/dL Hepatitis A IgM Ab (Nonreactive) Hep Bs Antigen (Nonreactive) Hep B Core IgM Ab (Nonreactive) Hep C IgG Ab (Nonreactive) 04/02/18 04/02/18 04/02/18 Range/Units 00:48 01:21 02:18 WBC (4.0-11.0) th/mm3 RBC (4.00-5.30) mil/mm3 Hgb (11.6-15.3) gm/dL Hct (35.0-46.0) % MCV (80.0-100.0) fL MCH (27.0-34.0) pg MCHC (32.0-36.0) % RDW (11.6-17.2) % Plt Count (150-450) th/mm3 MPV (7.0-11.0) fL Neut % (Auto) (16.0-70.0) % Lymph % (Auto) (9.0-44.0) % [place] % (Auto) (0.0-8.0) % Eos % (Auto) (0.0-4.0) % Baso % (Auto) (0.0-2.0) % Neut # (Auto) (1.8-7.7) th/mm3 Lymph # (Auto) (1.0-4.8) th/mm3 [place] # (Auto) (0.0-0.9) th/mm3 Eos # (Auto) (0.0-0.4) th/mm3 Baso # (Auto) (0.0-0.2) th/mm3 WBC Differential Differential Comment PT (9.8-11.6) sec INR Ratio APTT (24.3-30.1) sec Sodium (136-145) meq/L Potassium (3.5-5.1) meq/L Chloride (98-107) meq/L Carbon Dioxide (21.0-32.0) meq/L Anion Gap (5-15) meq/L BUN (7-18) mg/dL Creatinine (0.50-1.00) mg/dL Estimated GFR (>89) mL/min POC Glucose 12 L* 90 92 (68-110) mg/dl Random Glucose (74-106) mg/dL Hemoglobin A1c (4.3-6.0) % Lactic Acid (0.4-2.0) mmol/L Calcium (8.5-10.1) mg/dL Phosphorus (2.5-4.9) mg/dL Magnesium (1.5-2.5) mg/dL Total Bilirubin (0.2-1.0) mg/dL AST (15-37) U/L ALT (10-53) U/L Alkaline Phosphatase (45-117) U/L Ammonia (11-32) mcmol/L Total Protein (6.4-8.2) g/dL Albumin (3.4-5.0) g/dL Amylase (25-115) U/L TSH (0.358-3.740) uIU/mL Free T4 (0.76-1.46) ng/dL Urine Color (Yellw/Straw) Urine Clarity (Clear) Urine pH (5.0-8.5) Ur Specific [place] (1.002-1.035) Urine Protein (Neg-Trace) mg/dL Urine Glucose (UA) (Negative) mg/dL Urine Ketones (Negative) mg/dL Urine Occult Blood (Negative) Urine Nitrate (Negative) Urine Bilirubin (Negative) Urine Urobilinogen (Less than 2) mg/dL Ur Leukocyte Esterase (Negative) Urine RBC (0-3) /hpf Urine WBC (0-5) /hpf Ur Squamous Epith Cells (0-5) /hpf Urine Bacteria (None) /hpf Urine Mucus (Occasional) /lpf Micro UA Comment Ur Microscopic Review Urine Culture Comments Nasal Screen MRSA (PCR) (Negative) Urine Opiates Screen (Neg) Ur Barbiturates Screen (Neg) Ur Amphetamines Screen (Neg) U Benzodiazepines Scrn (Neg) Urine Cocaine Screen (Neg) U Cannabinoids Screen (Neg) Serum Alcohol (0-5) mg/dL Hepatitis A IgM Ab (Nonreactive) Hep Bs Antigen (Nonreactive) Hep B Core IgM Ab (Nonreactive) Hep C IgG Ab (Nonreactive) 04/02/18 04/02/18 04/02/18 Range/Units 03:14 04:25 05:39 WBC (4.0-11.0) th/mm3 RBC (4.00-5.30) mil/mm3 Hgb (11.6-15.3) gm/dL Hct (35.0-46.0) % MCV (80.0-100.0) fL MCH (27.0-34.0) pg MCHC (32.0-36.0) % RDW (11.6-17.2) % Plt Count (150-450) th/mm3 MPV (7.0-11.0) fL Neut % (Auto) (16.0-70.0) % Lymph % (Auto) (9.0-44.0) % [place] % (Auto) (0.0-8.0) % Eos % (Auto) (0.0-4.0) % Baso % (Auto) (0.0-2.0) % Neut # (Auto) (1.8-7.7) th/mm3 Lymph # (Auto) (1.0-4.8) th/mm3 [place] # (Auto) (0.0-0.9) th/mm3 Eos # (Auto) (0.0-0.4) th/mm3 Baso # (Auto) (0.0-0.2) th/mm3 WBC Differential Differential Comment PT (9.8-11.6) sec INR Ratio APTT (24.3-30.1) sec Sodium 139 (136-145) meq/L Potassium 3.7 (3.5-5.1) meq/L Chloride 106 (98-107) meq/L Carbon Dioxide 22.5 (21.0-32.0) meq/L Anion Gap 11 (5-15) meq/L BUN 9 (7-18) mg/dL Creatinine 0.63 (0.50-1.00) mg/dL Estimated GFR Greater than 89 (>89) mL/min POC Glucose 72 112 H (68-110) mg/dl Random Glucose 225 H D (74-106) mg/dL Hemoglobin A1c (4.3-6.0) % Lactic Acid (0.4-2.0) mmol/L Calcium 7.9 L (8.5-10.1) mg/dL Phosphorus 3.1 D (2.5-4.9) mg/dL Magnesium 1.9 (1.5-2.5) mg/dL Total Bilirubin 0.4 (0.2-1.0) mg/dL AST 19 (15-37) U/L ALT 18 (10-53) U/L Alkaline Phosphatase 89 (45-117) U/L Ammonia (11-32) mcmol/L Total Protein 6.2 L (6.4-8.2) g/dL Albumin 2.8 L (3.4-5.0) g/dL Amylase (25-115) U/L TSH (0.358-3.740) uIU/mL Free T4 (0.76-1.46) ng/dL Urine Color (Yellw/Straw) Urine Clarity (Clear) Urine pH (5.0-8.5) Ur Specific [place] (1.002-1.035) Urine Protein (Neg-Trace) mg/dL Urine Glucose (UA) (Negative) mg/dL Urine Ketones (Negative) mg/dL Urine Occult Blood (Negative) Urine Nitrate (Negative) Urine Bilirubin (Negative) Urine Urobilinogen (Less than 2) mg/dL Ur Leukocyte Esterase (Negative) Urine RBC (0-3) /hpf Urine WBC (0-5) /hpf Ur Squamous Epith Cells (0-5) /hpf Urine Bacteria (None) /hpf Urine Mucus (Occasional) /lpf Micro UA Comment Ur Microscopic Review Urine Culture Comments Nasal Screen MRSA (PCR) (Negative) Urine Opiates Screen (Neg) Ur Barbiturates Screen (Neg) Ur Amphetamines Screen (Neg) U Benzodiazepines Scrn (Neg) Urine Cocaine Screen (Neg) U Cannabinoids Screen (Neg) Serum Alcohol (0-5) mg/dL Hepatitis A IgM Ab (Nonreactive) Hep Bs Antigen (Nonreactive) Hep B Core IgM Ab (Nonreactive) Hep C IgG Ab (Nonreactive) 04/02/18 04/02/18 Range/Units 06:45 07:49 WBC 7.1 (4.0-11.0) th/mm3 RBC 4.14 (4.00-5.30) mil/mm3 Hgb 11.6 (11.6-15.3) gm/dL Hct 34.4 L (35.0-46.0) % MCV 83.0 (80.0-100.0) fL MCH 28.0 (27.0-34.0) pg MCHC 33.7 (32.0-36.0) % RDW 14.8 (11.6-17.2) % Plt Count 180 (150-450) th/mm3 MPV 10.9 (7.0-11.0) fL Neut % (Auto) 76.2 H (16.0-70.0) % Lymph % (Auto) 14.8 (9.0-44.0) % [place] % (Auto) 7.5 (0.0-8.0) % Eos % (Auto) 0.9 (0.0-4.0) % Baso % (Auto) 0.6 (0.0-2.0) % Neut # (Auto) 5.4 (1.8-7.7) th/mm3 Lymph # (Auto) 1.1 (1.0-4.8) th/mm3 [place] # (Auto) 0.5 (0.0-0.9) th/mm3 Eos # (Auto) 0.1 (0.0-0.4) th/mm3 Baso # (Auto) 0.0 (0.0-0.2) th/mm3 WBC Differential . Differential Comment Auto diff final PT (9.8-11.6) sec INR Ratio APTT (24.3-30.1) sec Sodium (136-145) meq/L Potassium (3.5-5.1) meq/L Chloride (98-107) meq/L Carbon Dioxide (21.0-32.0) meq/L Anion Gap (5-15) meq/L BUN (7-18) mg/dL Creatinine (0.50-1.00) mg/dL Estimated GFR (>89) mL/min POC Glucose 304 H (68-110) mg/dl Random Glucose (74-106) mg/dL Hemoglobin A1c (4.3-6.0) % Lactic Acid (0.4-2.0) mmol/L Calcium (8.5-10.1) mg/dL Phosphorus (2.5-4.9) mg/dL Magnesium (1.5-2.5) mg/dL Total Bilirubin (0.2-1.0) mg/dL AST (15-37) U/L ALT (10-53) U/L Alkaline Phosphatase (45-117) U/L Ammonia (11-32) mcmol/L Total Protein (6.4-8.2) g/dL Albumin (3.4-5.0) g/dL Amylase (25-115) U/L TSH (0.358-3.740) uIU/mL Free T4 (0.76-1.46) ng/dL Urine Color (Yellw/Straw) Urine Clarity (Clear) Urine pH (5.0-8.5) Ur Specific [place] (1.002-1.035) Urine Protein (Neg-Trace) mg/dL Urine Glucose (UA) (Negative) mg/dL Urine Ketones (Negative) mg/dL Urine Occult Blood (Negative) Urine Nitrate (Negative) Urine Bilirubin (Negative) Urine Urobilinogen (Less than 2) mg/dL Ur Leukocyte Esterase (Negative) Urine RBC (0-3) /hpf Urine WBC (0-5) /hpf Ur Squamous Epith Cells (0-5) /hpf Urine Bacteria (None) /hpf Urine Mucus (Occasional) /lpf Micro UA Comment Ur Microscopic Review Urine Culture Comments Nasal Screen MRSA (PCR) (Negative) Urine Opiates Screen (Neg) Ur Barbiturates Screen (Neg) Ur Amphetamines Screen (Neg) U Benzodiazepines Scrn (Neg) Urine Cocaine Screen (Neg) U Cannabinoids Screen (Neg) Serum Alcohol (0-5) mg/dL Hepatitis A IgM Ab (Nonreactive) Hep Bs Antigen (Nonreactive) Hep B Core IgM Ab (Nonreactive) Hep C IgG Ab (Nonreactive) Imaging Data Radiologist's impression: Chest X-Ray 03/31/18 03:23 CONCLUSION: No acute cardiopulmonary process. Head CT 03/31/18 03:23 CONCLUSION: 1. No acute abnormality is seen. 2. Mild atrophy. . Head MRI 04/01/18 07:01 CONCLUSION: Negative MR Brain with and without contrast. ECG Data Attestation: I personally reviewed and interpreted this ECG as follows: Interpretation: Twelve-lead EKG was reviewed by me. Normal sinus rhythm, normal S, nonspecific ST-T wave changes. Heart rate of 98 bpm. Discharge Plan Discharge Disposition Patient Disposition: 30 Still Patient Discharge Condition Condition: Good Discharge Order Discharge Orders: Discharge Order (Routine); Ordered 04/02/18 Ordered By: Gopal Billings Discharge Details Anticipated Discharge Date: 04/02/18 Discharge Comment: DC TO HOME TODAY Physicians Team ED Provider: Mehran Osorio Primary Care Provider: Primary Care Ayaka Moore Attending Provider: Gopal Billings Other Providers: Brant Conway ED Status: Left Department Discharge Information Discharge Date/Time: 03/31/18 08:44
--- NOTE | 2018-03-31 05:46 | P.HPCC ---
History of Present Illness Primary Care Physician: No Primary Care Physician History of Present Illness: 58-year-old female came to the emergency room by EMS for altered mental status. Patient was constantly screaming with a high-pitched sound and was difficult to comprehend. She was not following commands. As per EMS she was like this the entire right. Her called 911 since as per him she became like this couple hours prior to him calling EMS. This is not her baseline. The also mentioned that she was seen in the emergency room 2 days ago and was diagnosed with UTI. She was discharged home on antibiotic but the prescription was not filled. Patient was combative upon arrival. The last time patient was seen normal was not confirmed at this point. The was not present with her or in the department. Her toxicology screen is positive for amphetamines. Inpatient Certification: I certify that the inpatient services were ordered in accordance with Medicare regulations governing the order. This includes certification that hospital inpatient services are reasonable and necessary and in the case of services not specified as inpatient-only under 42 CFR 419.22(n), that they are appropriately provided as inpatient services in accordance to with the 2-midnight benchmark under 43 CFR 412.3(e) Review of Systems unobtainable due to mental condition PMFSH - History History Provided By: Dsp Engineer / EMT - Medical History Medical History: Medical History (Last Reviewed 03/31/18 @ 05:30 by Mehran Osorio MD) Cataract delivery delivered Depressed Diabetes Hypertension Hypothyroid - Tobacco History Second Hand Smoke Exposure: No Smoking Status: Unknown if ever smoked - Alcohol History How Often Do You Have a Drink Containing Alcohol: Unable to Obtain - Substance Use History Substance History: Unable to Obtain - Travel History Recent Travel in the [place] Within the Last 8 Weeks: No Recent Travel Out of the Country Within the Last 8 Weeks: No - Immunization History Tetanus Immunization: Unable to Assess Medications and Allergies Active Medications: Active Medications Sodium Chloride (Ns Inj) 1,000 mls @ 0 mls/hr IV.SIG BOLUS KESHAWN Last Infusion: 03/31/18 04:42 Dose: Infused Current Medications Acetaminophen (Tylenol) 650 mg PO Q6H PRN PRN Reason: PAIN 1-10 AND/OR FEVER >101F Al Hydroxide/Mg Hydroxide (Milk Of Magnesia Liq) 30 ml PO Q12H PRN PRN Reason: Mild Constipation Albuterol (Duoneb Neb (Prn)) 1 ampul NEB Q2HR NEB PRN PRN Reason: WHEEZING Bisacodyl (Dulcolax Supp) 10 mg RECTAL DAILY PRN PRN Reason: SEVERE CONSITIPATION Chlorhexidine Gluconate (Chlorhexidine 2% Cloth) 3 pack TOPICAL DAILY@0400 KESHAWN Stop: 04/06/18 03:59 Chlorhexidine Gluconate (Chlorhexidine 2% Cloth) 3 pack TOPICAL DAILY@0400 PRN PRN Reason: Extra cloth needed Stop: 04/06/18 03:59 Ciprofloxacin HCl (Cipro) 500 mg PO Q12H KESHAWN Dexmedetomidine HCl (Precedex Inj) 66 mcg 1 mcg/kg (66 mcg) IV.PUSH ONCE ONE Stop: 03/31/18 05:49 Dextrose (D50w Vial) 50 ml IV.PUSH UNSCH PRN PRN Reason: PER HYPOGLYCEMIA PROTOCOL Enoxaparin Sodium (Lovenox Inj) 40 mg SQ Q24H KESHAWN Glucagon (Glucagon Inj) 1 mg OTHER PRN PRN PRN Reason: for Hypoglycemia Protocol Sodium Chloride (Ns Inj) 1,000 mls @ 0 mls/hr IV.SIG BOLUS KESHAWN Last Infusion: 03/31/18 04:42 Dose: Infused Dexmedetomidine HCl 200 mcg/ (Sodium Chloride) 50 mls @ 3.28 mls/hr IV.CONT TITRATE PRN; Protocol PRN Reason: Per Protocol Sodium Chloride (Ns Inj) 1,000 mls @ 154 mls/hr IV.CONT .Q6H30M [facility] Insulin Human Regular (Novolin R Correctional Sugar Inj) 0 units SQ ACHS KESHAWN; Protocol Lactulose (Lactulose Liq) 30 ml PO DAILY PRN PRN Reason: SEVERE CONSITIPATION Levothyroxine Sodium (Synthroid) 25 mcg PO DAILY [facility] Morphine Sulfate (Morphine Inj) 2 mg IV.PUSH Q2H PRN PRN Reason: PAIN SCALE 6 TO 10 Non-Formulary Medication (Bupropion Hcl [Wellbutrin Xl]) 300 mg PO QAM [facility] Non-Formulary Medication (Insulin Glargine Inj) 22 unit SQ DAILY [facility] Non-Formulary Medication (Ranitidine Hcl [Zantac]) 150 mg PO BID [facility] Ondansetron HCl (Zofran Inj) 4 mg IV.PUSH Q6H PRN PRN Reason: NAUSEA OR VOMITING Senna/Docusate Sodium (Vicki-Colace) 1 tab PO BID KESHAWN Sennosides (Senokot) 17.2 mg PO Q12H PRN PRN Reason: Moderate Constipation Sodium Chloride (Ns Flush) 2 ml IV.FLUSH BID KESHAWN Sodium Chloride (Ns Flush) 2 ml IV.FLUSH PRN PRN PRN Reason: FLUSH AFTER USING IV ACCESS Temazepam (Restoril) 15 mg PO HS PRN PRN Reason: INSOMNIA Allergies Allergy/AdvReac Type Severity Reaction Status Date / Time No Known Allergies Allergy Unverified 03/31/18 03:04 Home Medications Medication Instructions Recorded Confirmed Type insulin glargine [Lantus U-100 22 unit SUB-Q DAILY 12/09/17 03/22/18 History Insulin] Results - Labs CBC & Chem 7: 03/31/18 03:35 03/31/18 03:35 Labs: Short CBC 03/31/18 Range/Units 03:35 WBC 15.2 H (4.0-11.0) th/mm3 Hgb 13.8 (11.6-15.3) gm/dL Hct 40.1 (35.0-46.0) % Plt Count 260 (150-450) th/mm3 BMP 03/31/18 03:35 Sodium 140 Potassium 4.2 Chloride 106 Carbon Dioxide 24.5 BUN 19 H Creatinine 0.95 Calcium 8.9 D Liver Function 03/31/18 Range/Units 03:35 Total Bilirubin 0.4 (0.2-1.0) mg/dL AST 22 (15-37) U/L ALT 24 (10-53) U/L Alkaline Phosphatase 120 H (45-117) U/L Albumin 4.1 D (3.4-5.0) g/dL Urine 03/31/18 Range/Units 03:30 Urine Color Yellow (Yellw/Straw) Urine Clarity Hazy H (Clear) Urine pH 5.0 (5.0-8.5) Ur Specific [place] 1.025 (1.002-1.035) Urine Protein 30 H (Neg-Trace) mg/dL Urine Glucose (UA) Negative (Negative) mg/dL - Imaging Impressions Chest X-Ray 03/31/18 03:23 CONCLUSION: No acute cardiopulmonary process. Head CT 03/31/18 03:23 CONCLUSION: 1. No acute abnormality is seen. 2. Mild atrophy. . Exam Vital signs: Vital Signs 03/31/18 03:06 03/31/18 03:11 03/31/18 04:10 Temperature 98.5 F Pulse Rate 118 H 85 Respiratory Rate 18 16 Blood Pressure 154/72 H 137/78 Pulse Oximetry 97 96 03/31/18 04:24 03/31/18 05:00 Temperature Pulse Rate 82 89 Respiratory Rate 16 Blood Pressure 130/70 Pulse Oximetry 96 Intake & Output 03/30/18 03/30/18 03/31/18 06:59 18:59 06:59 Intake Total 1200 / 1200 Balance 1200 / 1200 Weight 65.771 kg Intake: IV 1200 / 1200 Zosyn 4.5 GM Premix 4.5 gm In 100 / 100 100 ml @ 200 mls/hr IV.SIG ONCE ONE Rx#:[id number] NS Inj 1,000 ML @ Wide Open IV. 1000 / 1000 SIG BOLUS KESHAWN Rx#:[id number] Rocephin Inj 2,000 MG In NS Inj 100 / 100 100 ML @ 200 mls/hr IV.SIG ONCE ONE Rx#:[id number] - Constitutional agitated - Routine HEENT Exam Head: Present: normocephalic, atraumatic Eye: Present: PERRL, normal accommodation ENT: Present: mucous membranes moist - Routine Neck Exam Present: supple, full ROM. Absent: JVD, carotid bruit - Routine Respiratory Exam Absent: accessory muscle use, rhonchi, stridor, wheezes - Routine Cardiovascular Exam Present: RRR, S1, S2 - Routine Abdominal Exam Present: soft, normoactive bowel sounds. Absent: tenderness, distended - Routine Extremities Exam Absent: cyanosis, clubbing, edema - Routine Skin Exam Present: intact. Absent: cyanosis, erythema - Routine Neurological Exam Present: altered mental status, moving all extremities, normal tone Septic Shock Reassessment Septic shock perfusion: reassessment completed Caprini VTE Risk Assessment Caprini VTE Risk Assessment: Moderate/High Risk (score >= 2) Caprini Risk Assessment Model: Point Value = 1 Point Value = 2 Point Value = 3 Point Value = 5 Age 41-60 Minor surgery BMI > 25 kg/m2 Swollen legs Varicose veins or History of unexplained or recurrent spontaneous Oral contraceptives or hormone replacement Sepsis (< 1 month) Serious lung disease, including pneumonia (< 1 month) Abnormal pulmonary function Acute myocardial infarction Congestive heart failure (< 1 month) History of inflammatory bowel disease Medical patient at bed rest Age 61-74 Arthroscopic surgery Major open surgery (> 45 min) Laparoscopic surgery (> 45 min) Malignancy Confined to bed (> 72 hours) Immobilizing plaster cast Central venous access Age >= 75 History of VTE Family history of VTE Factor V Leiden Prothrombin [id number] Lupus anticoagulant Anticardiolipin antibodies Elevated serum homocysteine Heparin-induced thrombocytopenia Other congenital or acquired thrombophilia Stroke (< 1 month) Elective arthroplasty Hip, pelvis, or leg fracture Acute spinal cord injury (< 1 month) Prophylaxis Regimen: Total Risk Factor Score Risk Level Prophylaxis Regimen 0-1 Low Early ambulation 2 Moderate Order ONE of the following: *Sequential Compression Device (SCD) *Heparin 5000 units SQ BID 3-4 Higher Order ONE of the following medications: *Heparin 5000 units SQ TID *Enoxaparin/Lovenox 40 mg SQ daily (WT < 150 kg, CrCl > 30 mL/min) *Enoxaparin/Lovenox 30 mg SQ daily (WT < 150 kg, CrCl > 10-29 mL/min) *Enoxaparin/Lovenox 30 mg SQ BID (WT < 150 kg, CrCl > 30 mL/min) AND/OR *Sequential Compression Device (SCD) 5 or more Highest Order ONE of the following medications: *Heparin 5000 units SQ TID (Preferred with Epidurals) *Enoxaparin/Lovenox 40 mg SQ daily (WT < 150 kg, CrCl > 30 mL/min) *Enoxaparin/Lovenox 30 mg SQ daily (WT < 150 kg, CrCl > 10-29 mL/min) *Enoxaparin/Lovenox 30 mg SQ BID (WT < 150 kg, CrCl > 30 mL/min) AND *Sequential Compression Device (SCD) Assessment and Plan - Assessment and Plan Plan: Altered mental status -Amphetamine intoxication -CT head negative -Pancultures to rule out SIRS/sepsis -Precedex as needed to keep calm -Supportive care Diabetes mellitus -Insulin sliding scale Urinary tract infection - Ciprofloxacin Hypothyroid -Levothyroxine DVT GI prophylaxis -Teds SCDs -Subcu Lovenox -ADA diet 35 minutes of critical care
[2018-03-31] MEDS ORDERED: Bisacodyl 10 MG Supp RECTAL PRN (05:48)
[2018-03-31] MEDS ORDERED: Temazepam 15 MG Capsule PO PRN (05:48)
[2018-03-31] MEDS ORDERED: Morphine Sulfate Inj 2 MG/ML Vial IV.PUSH PRN (05:48)
[2018-03-31] MEDS ORDERED: Dexmedetomidine Inj 200 MCG/2 ML Vial IV.PUSH ONE (05:48)
[2018-03-31] MEDS ORDERED: Acetaminophen 325 MG Tablet PO PRN (05:48)
[2018-03-31] MEDS ORDERED: Ciprofloxacin 500 MG Tablet PO SCH (06:00)
[2018-03-31] MEDS: Sod Chloride 0.9% Inj 1,000 ML IV.CONT SCH ×2 (07:14→13:25)
[2018-03-31] MEDS: Insulin NovoLIN Regular Correctional Sugar Inj SQ SCH ×4 (07:20→21:33)
[2018-03-31] MEDS: Dexmedetomidine Inj 200 MCG in Sodium Chlor 0.9% Inj 48 ML IV.CONT PRN ×2 (09:00→14:23)
[2018-03-31] MEDS: Insulin Detemir Inj 1,000 UNIT/10 ML Vial SQ SCH (09:36)
[2018-03-31] MEDS: buPROPion 150 MG 12 HR Tablet PO SCH ×2 (09:37→21:33)
[2018-03-31] MEDS: Senna/Docusate Sodium 8.6/50 MG Tablet PO SCH ×2 (09:37→21:32)
[2018-03-31] MEDS: Famotidine 20 MG Tablet PO SCH ×2 (09:37→21:32)
[2018-03-31] MEDS: Dextrose 50% in Water 50 ML Vial IV.PUSH PRN (11:51)
[2018-03-31] MEDS: Enoxaparin Inj 40 MG/0.4 ML Syringe SQ SCH (13:33)
[2018-03-31] MEDS: Dextrose 5%/NaCl 0.9% Inj 1,000 ML IV.SIG SCH ×2 (15:04→21:40)
--- NOTE | 2018-03-31 16:37 | MB ---
cc: Brant Conway MD, PhD DATE: 03/31/2018 REASON FOR CONSULTATION: Mental status change. HISTORY OF PRESENT ILLNESS: Ms. Chery is a 58-year-old female brought into the hospital after she became very combative, was screaming, did not make sense and very confused. Her amphetamine screen was positive. She was placed on Precedex and has been off Precedex and has been calm, non-combative since. CURRENT MEDICATIONS: 1. Tylenol. 2. DuoNeb. 3. Wellbutrin. 4. Cipro. 5. Subcutaneous Lovenox. 6. Pepcid. 7. Levemir insulin injection. 8. Lactulose. 9. Synthroid. 10. Morphine sulfate p.r.n. 11. Zofran p.r.n. 9. Senokot. 10. Restoril p.r.n. NEUROLOGIC EXAMINATION: VITAL SIGNS: Blood pressure is 131/70, pulse 54, respirations are 12, temperature is 98.8 degrees. HIGHER CORTICAL FUNCTION: She is lethargic, but arousable. She is oriented to date and place. She follows commands. She is not agitated presently. Cranial nerves are intact. MOTOR EXAM: No focal deficits. IMAGING STUDIES: CT brain negative. LABORATORY DATA: White count 15,200, hemoglobin 13.8, hematocrit 40%, platelet count 260,000. Sodium is 140, potassium 4.2, chloride 106, CO2 of 24.5, BUN is 19, creatinine 0.95, GFR 61, glucose 153, AST 22, ALT is 24. Urinalysis: PH is 5, specific gravity 1.025 and 15 WBCs. IMPRESSION: Encephalopathy, rule out metabolic encephalopathy, rule out encephalopathy due to amphetamines. RECOMMENDATION: I would like to get an MRI of the brain as well as an EEG for further evaluation. Brant Conway MD, PhD ROJAS/neha , 04:13 PM , 04:19 PM
--- NOTE | 2018-03-31 16:41 | ECG ---
Date Performed: 03/31/2018 Time Performed: 04:03:28 PTAGE: 58 years EKG: Sinus rhythm WITH OCCASIONAL SUPRAVENTRICULAR PREMATURE COMPLEXES Since the previous tracing, no significant ellis ge noted BORDERLINE ECG PREVIOUS TRACING : 12/09/2017 12.26 DOCTOR: Lianne Corea Interpretating Date/Time 03/31/2018 16:38:25
--- NOTE | 2018-03-31 20:39 | MG ---
cc: David Bryant MD EEG NUMBER: [id number] INDICATIONS: Change in mental status. Lovenox. Bilateral diffuse alpha and beta waves are noted. Recording overall is synchronous and symmetric. What appeared to be some small diffuse sleep spindles are noted and appeared to be in stage II sleep. 9 Hz diffuse 60 microvolt rhythm is also noted at times. No hemisphere asymmetry is noted. No epileptiform or seizure activity is seen. The patient has some vertex sharp waves indicating stage II sleep. Photic stimulation is performed without significant posterior driving. Hyperventilation is not performed. IMPRESSION: A normal awake and stage II sleep electroencephalogram. No evidence for a focal or diffuse abnormality. David Bryant MD DJM/sv , 08:03 PM , 08:06 PM
[2018-03-31 20:53] LABS: Hepatitis A IgM Antibody Nonreactive (Nonreactive); Hepatitits B Surface Antigen Nonreactive (Nonreactive)
[2018-04-01] MEDS: Chlorhexidine Gluconate 2% 1 Pack (2 Cloths) TOPICAL SCH (03:14)
[2018-04-01] MEDS ORDERED: Chlorhexidine Gluconate 2% 1 Pack (2 Cloths) TOPICAL PRN (04:00)
[2018-04-01] MEDS: Dextrose 5%/NaCl 0.9% Inj 1,000 ML IV.SIG SCH ×2 (05:13→12:12)
[2018-04-01 07:00] LABS: Baso % (Auto) 0.8 % (0.0-2.0); Eos # (Auto) 0.1 th/mm3 (0.0-0.4); Eos % (Auto) 1.1 % (0.0-4.0); Hematocrit 33.1 % (35.0-46.0); Lymph % (Auto) 17.7 % (9.0-44.0); Mean Corpuscular HGB Conc 33.2 % (32.0-36.0); Mean Corpuscular Hemoglobin 28.2 pg (27.0-34.0); Mean Platelet Volume 10.2 fL (7.0-11.0); Mono # (Auto) 0.5 th/mm3 (0.0-0.9); Mono % (Auto) 8.7 % (0.0-8.0); Neut # (Auto) 3.9 th/mm3 (1.8-7.7); Neut % (Auto) 71.7 % (16.0-70.0); Platelet Count 155 th/mm3 (150-450); Red Cell Distribution Width 14.8 % (11.6-17.2); White Blood Count 5.5 th/mm3 (4.0-11.0)
[2018-04-01 07:18] LABS: Activated Partial Thrombo Time 25.5 sec (24.3-30.1); INR 1.1 Ratio; Prothrombin Time 11.4 sec (9.8-11.6)
[2018-04-01 07:38] LABS: Alanine Aminotransferase 18 U/L (10-53); Albumin 2.7 g/dL (3.4-5.0); Alkaline Phosphatase 84 U/L (45-117); Amylase 35 U/L (25-115); Anion Gap 11 meq/L (5-15); Aspartate Aminotransferase 18 U/L (15-37); Blood Urea Nitrogen 10 mg/dL (7-18); Calcium 7.5 mg/dL (8.5-10.1); Carbon Dioxide 19.4 meq/L (21.0-32.0); Chloride 108 meq/L (98-107); Free T4 (Free Thyroxine) 0.85 ng/dL (0.76-1.46); Glomerular Filtration Rate 67 mL/min (>89); Glucose,Random 400 mg/dL (74-106); Magnesium 1.6 mg/dL (1.5-2.5); Phosphorus 1.6 mg/dL (2.5-4.9); Potassium 4.2 meq/L (3.5-5.1); Sodium 138 meq/L (136-145); Total Protein 5.9 g/dL (6.4-8.2)
[2018-04-01] MEDS: Insulin Detemir Inj 1,000 UNIT/10 ML Vial SQ SCH (08:02)
[2018-04-01] MEDS: Insulin NovoLIN Regular Correctional Sugar Inj SQ SCH ×4 (08:02→21:39)
[2018-04-01] MEDS: Enoxaparin Inj 40 MG/0.4 ML Syringe SQ SCH (08:03)
[2018-04-01] MEDS: Famotidine 20 MG Tablet PO SCH ×2 (08:03→21:38)
[2018-04-01] MEDS: buPROPion 150 MG 12 HR Tablet PO SCH ×2 (08:05→21:38)
[2018-04-01] MEDS ORDERED: Gadobutrol PF 7.5 MMOL/7.5 ML Vial (for RAD) IV.SIG ONE (10:37)
--- NOTE | 2018-04-01 10:46 | MR ---
EXAM DATE: 04/01/2018 7:01 AM EDT AGE/SEX: 58 years / Female INDICATIONS: Altered mental status. CLINICAL DATA: This is the patient's initial encounter. Patient reports that signs and symptoms have been present for 2 days and indicates a pain score of Nonresponsive. MEDICAL/SURGICAL HISTORY: Diabetes mellitus type II. Hypertension. section. COMPARISON: [facility] [place], CT HEAD W/O CONTRAST, 03/31/2018. . TECHNIQUE: Multiplanar, multisequence examination of the brain was performed without and with 7 ml Om niscan (gadodiamide) contrast as a single exam dose. FINDINGS: Cerebrum: The ventricles are normal for age. No evidence of midline shift, mass lesion, hemorrhage or acute infarction. No extraaxial fluid collections are seen. The pituitary gland and suprasellar cistern are normal in configuration. White Matter: No significant signal abnormalities are seen in the white matter. Posterior Fossa: The cerebellum and brainstem are intact. The 4th ventricle is midline. The cerebel lopontine angle is unremarkable. The cerebellar tonsils are normal in position. Diffusion Imaging: No focal areas of restricted diffusion are seen. No evidence of acute infarction . Extracranial: The visualized portions of the orbits and paranasal sinuses are unremarkable. Post Contrast: No abnormal areas of parenchymal or dural enhancement. No evidence of blood-brain ba rrier breakdown. CONCLUSION: Negative MR Brain with and without contrast. Electronically signed by: Tavo Pacheco MD 04/01/2018 10:44 AM EDT
--- NOTE | 2018-04-01 11:08 | P.PNIM ---
Subjective Interval history: 58-year-old female came to the emergency room by EMS for altered mental status. Patient was constantly screaming with a high-pitched sound and was difficult to comprehend. She was not following commands. As per EMS she was like this the entire right. Her called 911 since as per him she became like this couple hours prior to him calling EMS. This is not her baseline. The also mentioned that she was seen in the emergency room 2 days ago and was diagnosed with UTI. She was discharged home on antibiotic but the prescription was not filled. Patient was combative upon arrival. The last time patient was seen normal was not confirmed at this point. The was not present with her or in the department. Her toxicology screen is positive for amphetamines. 04-01 HAD MRI WAS STABLE EEG IS STABLE NOT ABLE TO GIVE MUCH HISTORY DENIES ANY DRUG USE RECENT UTI Hep-Lock IV Transfer out of ICU PT and OT to eval and treat Discussed with RN and patient Move out of ICU Physical Exam Vital signs: Vital Signs 03/31/18 11:15 03/31/18 11:30 03/31/18 11:45 Temperature Pulse Rate 63 62 62 Respiratory Rate 13 15 15 Blood Pressure 131/74 118/68 116/71 Pulse Oximetry 97 97 97 03/31/18 12:00 03/31/18 12:15 03/31/18 12:30 Temperature Pulse Rate 61 60 60 Respiratory Rate 14 13 14 Blood Pressure 113/63 111/66 111/67 Pulse Oximetry 96 97 97 03/31/18 12:45 03/31/18 13:00 03/31/18 13:15 Temperature Pulse Rate 61 59 L 58 L Respiratory Rate 13 12 12 Blood Pressure 127/68 115/66 126/72 Pulse Oximetry 97 97 98 03/31/18 13:30 03/31/18 13:45 03/31/18 14:00 Temperature Pulse Rate 57 L 57 L 57 L Respiratory Rate 12 13 14 Blood Pressure 123/70 122/70 127/71 Pulse Oximetry 98 97 98 03/31/18 14:15 03/31/18 14:30 03/31/18 14:45 Temperature Pulse Rate 60 58 L 54 L Respiratory Rate 16 15 11 L Blood Pressure 124/73 120/70 126/76 Pulse Oximetry 99 98 99 03/31/18 15:00 03/31/18 15:04 03/31/18 15:15 Temperature Pulse Rate 56 L 58 L 54 L Respiratory Rate 14 15 12 Blood Pressure 135/80 132/76 131/70 Pulse Oximetry 99 100 98 03/31/18 15:30 03/31/18 15:45 03/31/18 16:00 Temperature 97.3 F L Pulse Rate 54 L 55 L 54 L Respiratory Rate 12 12 12 Blood Pressure 121/68 130/76 141/75 H Pulse Oximetry 99 98 99 03/31/18 16:15 03/31/18 16:30 03/31/18 16:45 Temperature Pulse Rate 65 57 L 61 Respiratory Rate 12 13 13 Blood Pressure 127/71 136/78 129/70 Pulse Oximetry 98 99 99 03/31/18 17:00 03/31/18 17:15 03/31/18 17:30 Temperature Pulse Rate 62 58 L 58 L Respiratory Rate 21 17 15 Blood Pressure 131/66 139/71 127/67 Pulse Oximetry 99 99 99 03/31/18 17:45 03/31/18 18:00 03/31/18 18:15 Temperature Pulse Rate 63 69 73 Respiratory Rate 13 18 26 H Blood Pressure 122/65 119/68 128/70 Pulse Oximetry 98 99 100 03/31/18 18:30 03/31/18 18:45 03/31/18 19:00 Temperature Pulse Rate 72 68 68 Respiratory Rate 19 25 H 19 Blood Pressure 139/80 133/77 132/76 Pulse Oximetry 99 98 99 03/31/18 19:15 03/31/18 19:30 03/31/18 19:45 Temperature Pulse Rate 62 63 63 Respiratory Rate 18 14 15 Blood Pressure 130/74 130/71 136/72 Pulse Oximetry 97 98 97 03/31/18 20:00 03/31/18 20:15 03/31/18 20:30 Temperature 98.4 F Pulse Rate 70 72 62 Respiratory Rate 14 18 20 Blood Pressure 129/74 149/83 H 135/74 Pulse Oximetry 99 97 99 03/31/18 20:45 03/31/18 21:00 03/31/18 21:08 Temperature Pulse Rate 67 61 68 Respiratory Rate 22 22 Blood Pressure 138/80 140/77 Pulse Oximetry 99 100 99 03/31/18 21:10 03/31/18 22:00 03/31/18 23:00 Temperature Pulse Rate 74 65 71 Respiratory Rate 20 24 16 Blood Pressure 140/77 138/70 143/73 H Pulse Oximetry 99 99 96 04/01/18 00:00 04/01/18 01:00 04/01/18 02:00 Temperature 98.6 F Pulse Rate 56 L 53 L 62 Respiratory Rate 20 14 14 Blood Pressure 150/73 H 130/68 142/79 H Pulse Oximetry 98 96 97 04/01/18 03:00 04/01/18 04:00 04/01/18 04:01 Temperature 98.2 F Pulse Rate 65 64 71 Respiratory Rate 17 19 26 H Blood Pressure 138/74 165/80 H 165/80 H Pulse Oximetry 96 95 97 04/01/18 05:00 04/01/18 06:00 04/01/18 06:14 Temperature Pulse Rate 60 69 59 L Respiratory Rate 16 17 14 Blood Pressure 147/70 H 152/101 H 154/74 H Pulse Oximetry 96 95 96 04/01/18 07:00 04/01/18 08:00 04/01/18 09:00 Temperature 98.4 F Pulse Rate 56 L 71 63 Respiratory Rate 16 19 24 Blood Pressure 143/69 H 132/68 Pulse Oximetry 96 100 04/01/18 09:05 04/01/18 10:00 04/01/18 10:07 Temperature Pulse Rate 64 80 77 Respiratory Rate 22 21 23 Blood Pressure 139/67 Pulse Oximetry 100 99 99 04/01/18 10:13 Temperature Pulse Rate Respiratory Rate Blood Pressure 146/69 H Pulse Oximetry Intake & Output 03/31/18 04/01/18 04/01/18 18:59 06:59 18:59 Intake Total 1049 / 1049 2079 Output Total 600 / 600 Balance 449 / 449 2079 Weight 67.5 kg 67.5 kg Intake: IV 1049 / 1049 1600 / 1600 Precedex Inj 200 MCG In NS Inj 55 / 55 48 ML @ 0.2 MCG/KG/HR 3.28 mls/ hr IV.CONT TITRATE PRN Rx#: [id number] NS Inj 1,000 ML @ 154 mls/hr IV 844 / 844 .CONT .Q6H30M [facility] Rx#:[id number] D5W/Normal Saline Inj 1,000 ML 1600 / 1600 @ 154 mls/hr IV.SIG .Q6H30M [facility] Rx#:[id number] Levaquin 750 mg Premix Inj 150 150 / 150 ML @ 100 mls/hr IV.SIG Q24H [facility] Rx#:[id number] Oral 480 / 480 Output: Urine Amount (Catheter) 600 / 600 Indwelling Urethral Catheter 600 / 600 Other: # Voids 4 Weight On Admission 67.5 kg Narrative: GENERAL: Awake and alert talkative not so cooperative poor history SKIN: Warm and dry. HEAD: Atraumatic. Normocephalic. EYES: Pupils equal and round. No scleral icterus. No injection or drainage. EOMI ENT: No nasal bleeding or discharge. Mucous membranes pink and moist. Tongue is midline NECK: Trachea midline. No JVD. Supple CARDIOVASCULAR: Regular rate and rhythm. S1-S2 no S3 or S4 RESPIRATORY: No accessory muscle use. Clear to auscultation. Breath sounds equal bilaterally. GASTROINTESTINAL: Abdomen soft, non-tender, nondistended. Hepatic and splenic margins not palpable. MUSCULOSKELETAL: Extremities without clubbing, cyanosis, or edema. No obvious deformities. NEUROLOGICAL: Awake and alert. No obvious cranial nerve deficits. Motor grossly within normal limits. Five out of 5 muscle strength in the arms and legs. Normal speech. PSYCHIATRIC: INAppropriate mood and affect; insight and judgment ABnormal. - Urinary Catheter Management Indwelling Urethral Catheter Cath placed during this visit: yes, but has since been removed by the nurse Reason for continuing: Decision to DC catheter Insertion date: 03/31/18 Insertion time: 03:30 Removal date: 03/31/18 Removal time: 18:00 Results - Labs CBC & Chem 7: 04/01/18 06:41 04/01/18 06:41 Laboratory Results - last 24 hr 03/31/18 03/31/18 03/31/18 08:45 11:47 12:10 WBC RBC Hgb Hct MCV MCH MCHC RDW Plt Count MPV Neut % (Auto) Lymph % (Auto) [place] % (Auto) Eos % (Auto) Baso % (Auto) Neut # (Auto) Lymph # (Auto) [place] # (Auto) Eos # (Auto) Baso # (Auto) WBC Differential Differential Comment PT INR APTT Sodium Potassium Chloride Carbon Dioxide Anion Gap BUN Creatinine Estimated GFR POC Glucose 58 L 172 H Random Glucose Calcium Phosphorus Magnesium Total Bilirubin AST ALT Alkaline Phosphatase Ammonia Total Protein Albumin Amylase TSH Free T4 Nasal Screen MRSA (PCR) Not detected Hepatitis A IgM Ab Hep Bs Antigen Hep B Core IgM Ab Hep C IgG Ab 03/31/18 03/31/18 03/31/18 16:52 18:57 19:57 WBC RBC Hgb Hct MCV MCH MCHC RDW Plt Count MPV Neut % (Auto) Lymph % (Auto) [place] % (Auto) Eos % (Auto) Baso % (Auto) Neut # (Auto) Lymph # (Auto) [place] # (Auto) Eos # (Auto) Baso # (Auto) WBC Differential Differential Comment PT INR APTT Sodium Potassium Chloride Carbon Dioxide Anion Gap BUN Creatinine Estimated GFR POC Glucose 265 H 63 L Random Glucose Calcium Phosphorus Magnesium Total Bilirubin AST ALT Alkaline Phosphatase Ammonia Total Protein Albumin Amylase TSH Free T4 Nasal Screen MRSA (PCR) Hepatitis A IgM Ab Nonreactive Hep Bs Antigen Nonreactive Hep B Core IgM Ab Nonreactive Hep C IgG Ab Nonreactive 03/31/18 04/01/18 04/01/18 21:32 03:05 06:41 WBC 5.5 RBC 3.90 L Hgb 11.0 L D Hct 33.1 L MCV 85.0 MCH 28.2 MCHC 33.2 RDW 14.8 Plt Count 155 D MPV 10.2 Neut % (Auto) 71.7 H Lymph % (Auto) 17.7 [place] % (Auto) 8.7 H Eos % (Auto) 1.1 Baso % (Auto) 0.8 Neut # (Auto) 3.9 Lymph # (Auto) 1.0 [place] # (Auto) 0.5 Eos # (Auto) 0.1 Baso # (Auto) 0.0 WBC Differential . Differential Comment Auto diff final PT INR APTT Sodium Potassium Chloride Carbon Dioxide Anion Gap BUN Creatinine Estimated GFR POC Glucose 91 347 H Random Glucose Calcium Phosphorus Magnesium Total Bilirubin AST ALT Alkaline Phosphatase Ammonia Total Protein Albumin Amylase TSH Free T4 Nasal Screen MRSA (PCR) Hepatitis A IgM Ab Hep Bs Antigen Hep B Core IgM Ab Hep C IgG Ab 04/01/18 04/01/18 04/01/18 06:41 06:41 06:41 WBC RBC Hgb Hct MCV MCH MCHC RDW Plt Count MPV Neut % (Auto) Lymph % (Auto) [place] % (Auto) Eos % (Auto) Baso % (Auto) Neut # (Auto) Lymph # (Auto) [place] # (Auto) Eos # (Auto) Baso # (Auto) WBC Differential Differential Comment PT 11.4 INR 1.1 APTT 25.5 Sodium 138 Potassium 4.2 Chloride 108 H Carbon Dioxide 19.4 L Anion Gap 11 BUN 10 Creatinine 0.87 Estimated GFR 67 L POC Glucose Random Glucose 400 H D Calcium 7.5 L D Phosphorus 1.6 L Magnesium 1.6 Total Bilirubin 0.4 AST 18 ALT 18 Alkaline Phosphatase 84 Ammonia 17 Total Protein 5.9 L D Albumin 2.7 L D Amylase 35 TSH 2.910 Free T4 0.85 Nasal Screen MRSA (PCR) Hepatitis A IgM Ab Hep Bs Antigen Hep B Core IgM Ab Hep C IgG Ab 04/01/18 07:42 WBC RBC Hgb Hct MCV MCH MCHC RDW Plt Count MPV Neut % (Auto) Lymph % (Auto) [place] % (Auto) Eos % (Auto) Baso % (Auto) Neut # (Auto) Lymph # (Auto) [place] # (Auto) Eos # (Auto) Baso # (Auto) WBC Differential Differential Comment PT INR APTT Sodium Potassium Chloride Carbon Dioxide Anion Gap BUN Creatinine Estimated GFR POC Glucose 467 H* Random Glucose Calcium Phosphorus Magnesium Total Bilirubin AST ALT Alkaline Phosphatase Ammonia Total Protein Albumin Amylase TSH Free T4 Nasal Screen MRSA (PCR) Hepatitis A IgM Ab Hep Bs Antigen Hep B Core IgM Ab Hep C IgG Ab Microbiology 03/31/18 03:35 Blood - Peripheral Aerobic Blood Culture - Preliminary No growth in 1 day 03/31/18 03:35 Blood - Peripheral Anaerobic Blood Culture - Preliminary No growth in 1 day 03/31/18 03:30 Blood - Peripheral Aerobic Blood Culture - Preliminary No growth in 1 day 03/31/18 03:30 Blood - Peripheral Anaerobic Blood Culture - Preliminary No growth in 1 day - Imaging Impressions Head MRI 04/01/18 07:01 CONCLUSION: Negative MR Brain with and without contrast. Assessment and Plan - Plan Altered mental status -Amphetamine intoxication -CT head negative -Pancultures to rule out SIRS/sepsis -Precedex as needed to keep calm -Supportive care Diabetes mellitus -Insulin sliding scale Adjust to diabetic cardiac diet Hypertension by history Urinary tract infection -On Levaquin Hypothyroid -Levothyroxine DVT GI prophylaxis -Teds SCDs -Subcu Lovenox -ADA diet History of depression on bupropion GI prophylaxis on ranitidine 150 twice daily Hypo-magnesium will replace Transfer out of ICU PT and OT AM LABS Code Status: Full code Discussed Condition With: RN and patient Discharge Planning: Transfer out of ICU
[2018-04-01] MEDS: Senna/Docusate Sodium 8.6/50 MG Tablet PO SCH ×2 (11:49→21:38)
[2018-04-01] MEDS ORDERED: Magnesium Sulfate Inj 2 GM in Sodium Chlor 0.9% Inj 96 ML IV.SIG ONE (12:00)
[2018-04-01 16:55] LABS: Hemoglobin A1c 8.7 % (4.3-6.0)
[2018-04-02] MEDS: Dextrose 50% in Water 50 ML Vial IV.PUSH PRN (01:03)
[2018-04-02] MEDS: Chlorhexidine Gluconate 2% 1 Pack (2 Cloths) TOPICAL SCH (05:23)
[2018-04-02 07:16] LABS: Baso % (Auto) 0.6 % (0.0-2.0); Eos # (Auto) 0.1 th/mm3 (0.0-0.4); Eos % (Auto) 0.9 % (0.0-4.0); Hematocrit 34.4 % (35.0-46.0); Hemoglobin 11.6 gm/dL (11.6-15.3); Lymph # (Auto) 1.1 th/mm3 (1.0-4.8); Lymph % (Auto) 14.8 % (9.0-44.0); Mean Corpuscular HGB Conc 33.7 % (32.0-36.0); Mean Platelet Volume 10.9 fL (7.0-11.0); Mono # (Auto) 0.5 th/mm3 (0.0-0.9); Mono % (Auto) 7.5 % (0.0-8.0); Neut # (Auto) 5.4 th/mm3 (1.8-7.7); Neut % (Auto) 76.2 % (16.0-70.0); Platelet Count 180 th/mm3 (150-450); Red Blood Count 4.14 mil/mm3 (4.00-5.30); Red Cell Distribution Width 14.8 % (11.6-17.2); White Blood Count 7.1 th/mm3 (4.0-11.0)
[2018-04-02 07:41] LABS: Alanine Aminotransferase 18 U/L (10-53); Albumin 2.8 g/dL (3.4-5.0); Alkaline Phosphatase 89 U/L (45-117); Anion Gap 11 meq/L (5-15); Aspartate Aminotransferase 19 U/L (15-37); Blood Urea Nitrogen 9 mg/dL (7-18); Calcium 7.9 mg/dL (8.5-10.1); Carbon Dioxide 22.5 meq/L (21.0-32.0); Chloride 106 meq/L (98-107); Glomerular Filtration Rate Greater Than 89 mL/min (>89); Glucose,Random 225 mg/dL (74-106); Magnesium 1.9 mg/dL (1.5-2.5); Phosphorus 3.1 mg/dL (2.5-4.9); Potassium 3.7 meq/L (3.5-5.1); Sodium 139 meq/L (136-145); Total Protein 6.2 g/dL (6.4-8.2)
[2018-04-02] MEDS: Enoxaparin Inj 40 MG/0.4 ML Syringe SQ SCH (09:06)
[2018-04-02] MEDS: Famotidine 20 MG Tablet PO SCH (09:07)
[2018-04-02] MEDS: Insulin Detemir Inj 1,000 UNIT/10 ML Vial SQ SCH (09:07)
[2018-04-02] MEDS: buPROPion 150 MG 12 HR Tablet PO SCH (09:07)
[2018-04-02] MEDS: Senna/Docusate Sodium 8.6/50 MG Tablet PO SCH (09:09)
[2018-04-02] MEDS: Insulin NovoLIN Regular Correctional Sugar Inj SQ SCH (09:10)
[2018-04-02 10:18] VITALS: O2SAT 99
--- NOTE | 2018-04-02 10:28 | P.PNNEU ---
Subjective Subjective Comments: more alert and oriented Active Medications: Active Medications Acetaminophen (Tylenol) 650 mg PO Q6H PRN PRN Reason: PAIN 1-5 AND/OR FEVER >101F Al Hydroxide/Mg Hydroxide (Milk Of Marya Jasso) 30 ml PO Q12H PRN PRN Reason: Mild Constipation Albuterol (Duoneb Neb (Prn)) 1 ampul NEB Q2HR NEB PRN PRN Reason: WHEEZING Bisacodyl (Dulcolax Supp) 10 mg RECTAL DAILY PRN PRN Reason: SEVERE CONSITIPATION Bupropion HCl (Wellbutrin Sr) 150 mg PO Q12HR [facility] Last Admin: 04/02/18 09:07 Dose: 150 mg Chlorhexidine Gluconate (Chlorhexidine 2% Cloth) 3 pack TOPICAL DAILY@0400 [facility] Stop: 04/06/18 03:59 Last Admin: 04/02/18 05:23 Dose: Not Given Chlorhexidine Gluconate (Chlorhexidine 2% Cloth) 3 pack TOPICAL DAILY@0400 PRN PRN Reason: Extra cloth needed Stop: 04/06/18 03:59 Dextrose (D50w Vial) 50 ml IV.PUSH UNSCH PRN PRN Reason: PER HYPOGLYCEMIA PROTOCOL Last Admin: 04/02/18 01:03 Dose: 50 ml Enoxaparin Sodium (Lovenox Inj) 40 mg SQ Q24H [facility] Last Admin: 04/01/18 08:03 Dose: 40 mg Famotidine (Pepcid) 20 mg PO BID [facility] Last Admin: 04/02/18 09:07 Dose: 20 mg Glucagon (Glucagon Inj) 1 mg OTHER PRN PRN PRN Reason: for Hypoglycemia Protocol Dexmedetomidine HCl 200 mcg/ (Sodium Chloride) 50 mls @ 3.28 mls/hr IV.CONT TITRATE PRN; Protocol PRN Reason: Per Protocol Last Titration: 03/31/18 18:29 Dose: Infused Levofloxacin/Dextrose (Levaquin 750 Mg Premix Inj) 150 mls @ 100 mls/hr IV.SIG Q24H [facility] Last Infusion: 04/01/18 16:59 Dose: Infused Insulin Detemir (Levemir Inj) 22 unit SQ DAILY [facility] Last Admin: 04/02/18 09:07 Dose: 22 unit Insulin Human Regular (Novolin R Correctional Sugar Inj) 0 units SQ ACHS [facility]; Protocol Last Admin: 04/02/18 09:10 Dose: 20 units Lactulose (Lactulose Liq) 30 ml PO DAILY PRN PRN Reason: SEVERE CONSITIPATION Levothyroxine Sodium (Synthroid) 25 mcg PO DAILY@0600 [facility] Last Admin: 04/02/18 05:46 Dose: 25 mcg Morphine Sulfate (Morphine Inj) 2 mg IV.PUSH Q2H PRN PRN Reason: PAIN SCALE 6 TO 10 Ondansetron HCl (Zofran Inj) 4 mg IV.PUSH Q6H PRN PRN Reason: NAUSEA OR VOMITING Last Admin: 03/31/18 18:43 Dose: 4 mg Senna/Docusate Sodium (Vicki-Colace) 1 tab PO BID [facility] Last Admin: 04/02/18 09:09 Dose: Not Given Sennosides (Senokot) 17.2 mg PO Q12H PRN PRN Reason: Moderate Constipation Sodium Chloride (Ns Flush) 2 ml IV.FLUSH BID [facility] Last Admin: 04/02/18 09:08 Dose: 2 ml Sodium Chloride (Ns Flush) 2 ml IV.FLUSH PRN PRN PRN Reason: FLUSH AFTER USING IV ACCESS Temazepam (Restoril) 15 mg PO HS PRN PRN Reason: INSOMNIA Allergies/Adverse Reactions: Allergies Allergy/AdvReac Type Severity Reaction Status Date / Time No Known Allergies Allergy Unverified 03/31/18 03:04 Physical Exam Vital signs: Vital Signs 04/01/18 10:39 04/01/18 10:45 04/01/18 11:00 Temperature Pulse Rate 80 78 73 Respiratory Rate 21 20 Blood Pressure 134/69 135/65 Pulse Oximetry 97 97 04/01/18 12:00 04/01/18 13:00 04/01/18 14:00 Temperature 98.6 F Pulse Rate 69 80 69 Respiratory Rate 19 20 22 Blood Pressure 126/63 158/80 H 138/70 Pulse Oximetry 98 97 99 04/01/18 15:00 04/01/18 16:00 04/01/18 17:00 Temperature 99.0 F Pulse Rate 66 64 60 Respiratory Rate 20 20 17 Blood Pressure 137/75 140/76 144/79 H Pulse Oximetry 04/01/18 18:00 04/01/18 19:00 04/01/18 20:00 Temperature 99.1 F Pulse Rate 76 66 62 Respiratory Rate 20 18 23 Blood Pressure 146/75 H 147/78 H 131/70 Pulse Oximetry 95 96 04/01/18 21:00 04/01/18 22:00 04/01/18 23:00 Temperature Pulse Rate 59 L 55 L 60 Respiratory Rate 22 20 22 Blood Pressure 157/79 H 153/67 H 137/90 Pulse Oximetry 96 98 100 04/02/18 00:00 04/02/18 01:00 04/02/18 02:00 Temperature Pulse Rate 73 62 54 L Respiratory Rate 16 22 10 L Blood Pressure 167/87 H 164/84 H 150/88 H Pulse Oximetry 100 94 L 100 04/02/18 03:00 04/02/18 04:00 04/02/18 05:00 Temperature 98.2 F Pulse Rate 56 L 52 L 53 L Respiratory Rate 15 12 13 Blood Pressure 126/66 146/68 H 120/59 L Pulse Oximetry 98 92 L 100 04/02/18 06:00 04/02/18 08:00 04/02/18 09:00 Temperature 98.3 F Pulse Rate 53 L 55 L 75 Respiratory Rate 15 18 20 Blood Pressure 165/70 H 120/60 Pulse Oximetry 93 L 98 94 L 04/02/18 10:00 Temperature Pulse Rate 65 Respiratory Rate 16 Blood Pressure 154/76 H Pulse Oximetry 99 Intake & Output 04/01/18 04/02/18 04/02/18 18:59 06:59 18:59 Intake Total 2049 480 / 480 Balance 2049 480 / 480 Weight 67.5 kg Intake: IV 850 / 850 D5W/Normal Saline Inj 1,000 ML 600 / 600 @ 154 mls/hr IV.SIG .Q6H30M [facility] Rx#:[id number] Levaquin 750 mg Premix Inj 150 150 / 150 ML @ 100 mls/hr IV.SIG Q24H [facility] Rx#:[id number] Magnesium Sulfate Inj 2 GM In 100 / 100 NS Inj 96 ML @ 50 mls/hr IV.SIG ONCE ONE Rx#:[id number] Oral 1200 / 1200 480 / 480 Other: # Voids 8 4 - Routine Neurological Exam alert,oriented times three, follow commands, speech is fluent and appropriate CN intact MOTOR 5/5 BUE - Urinary Catheter Management Indwelling Urethral Catheter Cath placed during this visit: yes, but has since been removed by the nurse Reason for continuing: Decision to DC catheter Insertion date: 03/31/18 Insertion time: 03:30 Removal date: 03/31/18 Removal time: 18:00 Objective Radiology Results: MRI brain is normal EEG normal Laboratory Results - last 24 hr 04/01/18 04/01/18 04/01/18 06:41 11:44 16:50 WBC RBC Hgb Hct MCV MCH MCHC RDW Plt Count MPV Neut % (Auto) Lymph % (Auto) [place] % (Auto) Eos % (Auto) Baso % (Auto) Neut # (Auto) Lymph # (Auto) [place] # (Auto) Eos # (Auto) Baso # (Auto) WBC Differential Differential Comment Sodium Potassium Chloride Carbon Dioxide Anion Gap BUN Creatinine Estimated GFR POC Glucose 172 H 108 Random Glucose Hemoglobin A1c 8.7 H Calcium Phosphorus Magnesium Total Bilirubin AST ALT Alkaline Phosphatase Total Protein Albumin 04/01/18 04/02/18 04/02/18 21:26 00:48 01:21 WBC RBC Hgb Hct MCV MCH MCHC RDW Plt Count MPV Neut % (Auto) Lymph % (Auto) [place] % (Auto) Eos % (Auto) Baso % (Auto) Neut # (Auto) Lymph # (Auto) [place] # (Auto) Eos # (Auto) Baso # (Auto) WBC Differential Differential Comment Sodium Potassium Chloride Carbon Dioxide Anion Gap BUN Creatinine Estimated GFR POC Glucose 326 H 12 L* 90 Random Glucose Hemoglobin A1c Calcium Phosphorus Magnesium Total Bilirubin AST ALT Alkaline Phosphatase Total Protein Albumin 04/02/18 04/02/18 04/02/18 02:18 03:14 04:25 WBC RBC Hgb Hct MCV MCH MCHC RDW Plt Count MPV Neut % (Auto) Lymph % (Auto) [place] % (Auto) Eos % (Auto) Baso % (Auto) Neut # (Auto) Lymph # (Auto) [place] # (Auto) Eos # (Auto) Baso # (Auto) WBC Differential Differential Comment Sodium Potassium Chloride Carbon Dioxide Anion Gap BUN Creatinine Estimated GFR POC Glucose 92 72 112 H Random Glucose Hemoglobin A1c Calcium Phosphorus Magnesium Total Bilirubin AST ALT Alkaline Phosphatase Total Protein Albumin 04/02/18 04/02/18 04/02/18 05:39 06:45 07:49 WBC 7.1 RBC 4.14 Hgb 11.6 Hct 34.4 L MCV 83.0 MCH 28.0 MCHC 33.7 RDW 14.8 Plt Count 180 MPV 10.9 Neut % (Auto) 76.2 H Lymph % (Auto) 14.8 [place] % (Auto) 7.5 Eos % (Auto) 0.9 Baso % (Auto) 0.6 Neut # (Auto) 5.4 Lymph # (Auto) 1.1 [place] # (Auto) 0.5 Eos # (Auto) 0.1 Baso # (Auto) 0.0 WBC Differential . Differential Comment Auto diff final Sodium 139 Potassium 3.7 Chloride 106 Carbon Dioxide 22.5 Anion Gap 11 BUN 9 Creatinine 0.63 Estimated GFR Greater than 89 POC Glucose 304 H Random Glucose 225 H D Hemoglobin A1c Calcium 7.9 L Phosphorus 3.1 D Magnesium 1.9 Total Bilirubin 0.4 AST 19 ALT 18 Alkaline Phosphatase 89 Total Protein 6.2 L Albumin 2.8 L Microbiology 03/31/18 03:30 Urine Culture - Final Catheterized Urine No growth in 48 hours 03/31/18 03:35 Aerobic Blood Culture - Preliminary Blood - Peripheral No growth in 1 day Anaerobic Blood Culture - Preliminary No growth in 1 day 03/31/18 03:30 Aerobic Blood Culture - Preliminary Blood - Peripheral No growth in 1 day Anaerobic Blood Culture - Preliminary No growth in 1 day Review/Management - Diagnosis (1) Encephalopathy Code(s): G93.40 - Encephalopathy, unspecified Status: Acute Current Visit: Yes - Review/Management Plan: metabolic encephalopathy. Resolved. Will sign off. please reconsult prn
--- NOTE | 2018-04-02 11:02 | P.PNIM ---
Subjective Interval history: 58-year-old female came to the emergency room by EMS for altered mental status. Patient was constantly screaming with a high-pitched sound and was difficult to comprehend. She was not following commands. As per EMS she was like this the entire right. Her called 911 since as per him she became like this couple hours prior to him calling EMS. This is not her baseline. The also mentioned that she was seen in the emergency room 2 days ago and was diagnosed with UTI. She was discharged home on antibiotic but the prescription was not filled. Patient was combative upon arrival. The last time patient was seen normal was not confirmed at this point. The was not present with her or in the department. Her toxicology screen is positive for amphetamines. 04-01 HAD MRI WAS STABLE EEG IS STABLE NOT ABLE TO GIVE MUCH HISTORY DENIES ANY DRUG USE RECENT UTI Hep-Lock IV Transfer out of ICU PT and OT to eval and treat Discussed with RN and patient Move out of ICU 04-02 CLEARED BY NEUROLOGY WANTS TO GO HOME DW RN AND PT AND CM AMBULATING DOES NOT NEED PSYCHIATRY CONSULT DC TO HOME TODAY Physical Exam Vital signs: Vital Signs 04/01/18 11:00 04/01/18 12:00 04/01/18 13:00 Temperature 98.6 F Pulse Rate 73 69 80 Respiratory Rate 20 19 20 Blood Pressure 135/65 126/63 158/80 H Pulse Oximetry 97 98 97 04/01/18 14:00 04/01/18 15:00 04/01/18 16:00 Temperature 99.0 F Pulse Rate 69 66 64 Respiratory Rate 22 20 20 Blood Pressure 138/70 137/75 140/76 Pulse Oximetry 99 04/01/18 17:00 04/01/18 18:00 04/01/18 19:00 Temperature Pulse Rate 60 76 66 Respiratory Rate 17 20 18 Blood Pressure 144/79 H 146/75 H 147/78 H Pulse Oximetry 95 04/01/18 20:00 04/01/18 21:00 04/01/18 22:00 Temperature 99.1 F Pulse Rate 62 59 L 55 L Respiratory Rate 23 22 20 Blood Pressure 131/70 157/79 H 153/67 H Pulse Oximetry 96 96 98 04/01/18 23:00 04/02/18 00:00 04/02/18 01:00 Temperature Pulse Rate 60 73 62 Respiratory Rate 22 16 22 Blood Pressure 137/90 167/87 H 164/84 H Pulse Oximetry 100 100 94 L 04/02/18 02:00 04/02/18 03:00 04/02/18 04:00 Temperature 98.2 F Pulse Rate 54 L 56 L 52 L Respiratory Rate 10 L 15 12 Blood Pressure 150/88 H 126/66 146/68 H Pulse Oximetry 100 98 92 L 04/02/18 05:00 04/02/18 06:00 04/02/18 08:00 Temperature 98.3 F Pulse Rate 53 L 53 L 55 L Respiratory Rate 13 15 18 Blood Pressure 120/59 L 165/70 H 120/60 Pulse Oximetry 100 93 L 98 04/02/18 09:00 04/02/18 10:00 Temperature Pulse Rate 75 65 Respiratory Rate 20 16 Blood Pressure 154/76 H Pulse Oximetry 94 L 99 Intake & Output 04/01/18 04/02/18 04/02/18 18:59 06:59 18:59 Intake Total 2049 480 / 480 Balance 2049 480 / 480 Weight 67.5 kg Intake: IV 850 / 850 D5W/Normal Saline Inj 1,000 ML 600 / 600 @ 154 mls/hr IV.SIG .Q6H30M [facility] Rx#:[id number] Levaquin 750 mg Premix Inj 150 150 / 150 ML @ 100 mls/hr IV.SIG Q24H [facility] Rx#:[id number] Magnesium Sulfate Inj 2 GM In 100 / 100 NS Inj 96 ML @ 50 mls/hr IV.SIG ONCE ONE Rx#:[id number] Oral 1200 / 1200 480 / 480 Other: # Voids 8 4 Narrative: GENERAL: Awake and alert talkative not so cooperative poor history SKIN: Warm and dry. HEAD: Atraumatic. Normocephalic. EYES: Pupils equal and round. No scleral icterus. No injection or drainage. EOMI ENT: No nasal bleeding or discharge. Mucous membranes pink and moist. Tongue is midline NECK: Trachea midline. No JVD. Supple CARDIOVASCULAR: Regular rate and rhythm. S1-S2 no S3 or S4 RESPIRATORY: No accessory muscle use. Clear to auscultation. Breath sounds equal bilaterally. GASTROINTESTINAL: Abdomen soft, non-tender, nondistended. Hepatic and splenic margins not palpable. MUSCULOSKELETAL: Extremities without clubbing, cyanosis, or edema. No obvious deformities. NEUROLOGICAL: Awake and alert. No obvious cranial nerve deficits. Motor grossly within normal limits. Five out of 5 muscle strength in the arms and legs. Normal speech. PSYCHIATRIC: Appropriate mood and affect; insight and judgment normal. - Urinary Catheter Management Indwelling Urethral Catheter Cath placed during this visit: yes, but has since been removed by the nurse Reason for continuing: Decision to DC catheter Insertion date: 03/31/18 Insertion time: 03:30 Removal date: 03/31/18 Removal time: 18:00 Results - Labs CBC & Chem 7: 04/02/18 06:45 04/02/18 05:39 Laboratory Results - last 24 hr 04/01/18 04/01/18 04/01/18 06:41 11:44 16:50 WBC RBC Hgb Hct MCV MCH MCHC RDW Plt Count MPV Neut % (Auto) Lymph % (Auto) [place] % (Auto) Eos % (Auto) Baso % (Auto) Neut # (Auto) Lymph # (Auto) [place] # (Auto) Eos # (Auto) Baso # (Auto) WBC Differential Differential Comment Sodium Potassium Chloride Carbon Dioxide Anion Gap BUN Creatinine Estimated GFR POC Glucose 172 H 108 Random Glucose Hemoglobin A1c 8.7 H Calcium Phosphorus Magnesium Total Bilirubin AST ALT Alkaline Phosphatase Total Protein Albumin 04/01/18 04/02/18 04/02/18 21:26 00:48 01:21 WBC RBC Hgb Hct MCV MCH MCHC RDW Plt Count MPV Neut % (Auto) Lymph % (Auto) [place] % (Auto) Eos % (Auto) Baso % (Auto) Neut # (Auto) Lymph # (Auto) [place] # (Auto) Eos # (Auto) Baso # (Auto) WBC Differential Differential Comment Sodium Potassium Chloride Carbon Dioxide Anion Gap BUN Creatinine Estimated GFR POC Glucose 326 H 12 L* 90 Random Glucose Hemoglobin A1c Calcium Phosphorus Magnesium Total Bilirubin AST ALT Alkaline Phosphatase Total Protein Albumin 04/02/18 04/02/18 04/02/18 02:18 03:14 04:25 WBC RBC Hgb Hct MCV MCH MCHC RDW Plt Count MPV Neut % (Auto) Lymph % (Auto) [place] % (Auto) Eos % (Auto) Baso % (Auto) Neut # (Auto) Lymph # (Auto) [place] # (Auto) Eos # (Auto) Baso # (Auto) WBC Differential Differential Comment Sodium Potassium Chloride Carbon Dioxide Anion Gap BUN Creatinine Estimated GFR POC Glucose 92 72 112 H Random Glucose Hemoglobin A1c Calcium Phosphorus Magnesium Total Bilirubin AST ALT Alkaline Phosphatase Total Protein Albumin 04/02/18 04/02/18 04/02/18 05:39 06:45 07:49 WBC 7.1 RBC 4.14 Hgb 11.6 Hct 34.4 L MCV 83.0 MCH 28.0 MCHC 33.7 RDW 14.8 Plt Count 180 MPV 10.9 Neut % (Auto) 76.2 H Lymph % (Auto) 14.8 [place] % (Auto) 7.5 Eos % (Auto) 0.9 Baso % (Auto) 0.6 Neut # (Auto) 5.4 Lymph # (Auto) 1.1 [place] # (Auto) 0.5 Eos # (Auto) 0.1 Baso # (Auto) 0.0 WBC Differential . Differential Comment Auto diff final Sodium 139 Potassium 3.7 Chloride 106 Carbon Dioxide 22.5 Anion Gap 11 BUN 9 Creatinine 0.63 Estimated GFR Greater than 89 POC Glucose 304 H Random Glucose 225 H D Hemoglobin A1c Calcium 7.9 L Phosphorus 3.1 D Magnesium 1.9 Total Bilirubin 0.4 AST 19 ALT 18 Alkaline Phosphatase 89 Total Protein 6.2 L Albumin 2.8 L Microbiology 03/31/18 03:30 Catheterized Urine Urine Culture - Final No growth in 48 hours 03/31/18 03:35 Blood - Peripheral Aerobic Blood Culture - Preliminary No growth in 1 day 03/31/18 03:35 Blood - Peripheral Anaerobic Blood Culture - Preliminary No growth in 1 day 03/31/18 03:30 Blood - Peripheral Aerobic Blood Culture - Preliminary No growth in 1 day 03/31/18 03:30 Blood - Peripheral Anaerobic Blood Culture - Preliminary No growth in 1 day - Imaging ITS Impressions Chest X-Ray 03/31/18 03:23 CONCLUSION: No acute cardiopulmonary process. Head CT 03/31/18 03:23 CONCLUSION: 1. No acute abnormality is seen. 2. Mild atrophy. . Head MRI 04/01/18 07:01 CONCLUSION: Negative MR Brain with and without contrast. - Procedures EEG Assessment and Plan - Plan Altered mental status -Amphetamine intoxication -CT head negative -Pancultures to rule out SIRS/sepsis -Precedex as needed to keep calm -Supportive care RESOLVED Diabetes mellitus -Insulin sliding scale Adjust to diabetic cardiac diet Hypertension by history Urinary tract infection -On Levaquin Hypothyroid -Levothyroxine DVT GI prophylaxis -Teds SCDs -Subcu Lovenox -ADA diet History of depression on bupropion GI prophylaxis on ranitidine 150 twice daily Hypo-magnesium will replace Transfer out of ICU PT and OT DC TO HOME TODAY SWITCH TO PO MEDS Code Status: FULL CODE Discussed Condition With: RN AND PT Discharge Planning: DC TO HOME TODAY CLEARED BY NEUROLOGY
--- NOTE | 2018-04-02 11:12 | P.DS ---
Date of admission: 03/31/18 05:02 Primary care physician: No Primary Care Physician Attending physician on discharge: Gopal Billings Anticipated date of discharge: 04/02/18 Brief History from admission: 58-year-old female came to the emergency room by EMS for altered mental status. Patient was constantly screaming with a high-pitched sound and was difficult to comprehend. She was not following commands. As per EMS she was like this the entire right. Her called 911 since as per him she became like this couple hours prior to him calling EMS. This is not her baseline. The also mentioned that she was seen in the emergency room 2 days ago and was diagnosed with UTI. She was discharged home on antibiotic but the prescription was not filled. Patient was combative upon arrival. The last time patient was seen normal was not confirmed at this point. The was not present with her or in the department. Her toxicology screen is positive for amphetamines. Patient update on day of discharge: 58-year-old female came to the emergency room by EMS for altered mental status. Patient was constantly screaming with a high-pitched sound and was difficult to comprehend. She was not following commands. As per EMS she was like this the entire right. Her called 911 since as per him she became like this couple hours prior to him calling EMS. This is not her baseline. The also mentioned that she was seen in the emergency room 2 days ago and was diagnosed with UTI. She was discharged home on antibiotic but the prescription was not filled. Patient was combative upon arrival. The last time patient was seen normal was not confirmed at this point. The was not present with her or in the department. Her toxicology screen is positive for amphetamines. 04-01 HAD MRI WAS STABLE EEG IS STABLE NOT ABLE TO GIVE MUCH HISTORY DENIES ANY DRUG USE RECENT UTI Hep-Lock IV Transfer out of ICU PT and OT to eval and treat Discussed with RN and patient Move out of ICU 04-02 CLEARED BY NEUROLOGY WANTS TO GO HOME DW RN AND PT AND CM AMBULATING DOES NOT NEED PSYCHIATRY CONSULT DC TO HOME TODAY DS: Diagnosis - Discharge Diagnosis (1) UTI (urinary tract infection) Status: Acute (2) Encephalopathy Status: Acute (3) Altered mental status Status: Acute (4) Diabetes Status: Chronic (5) Hypertension Status: Chronic (6) Hypothyroidism Status: Chronic (7) Depression Status: Chronic (8) Hypomagnesemia Status: Acute DS: Medications - Discharge Medications Prescriptions: levofloxacin [Levaquin] 750 mg PO DAILY #7 tab DS: Summary Hospital Course: 58-year-old female came to the emergency room by EMS for altered mental status. Patient was constantly screaming with a high-pitched sound and was difficult to comprehend. She was not following commands. As per EMS she was like this the entire right. Her called 911 since as per him she became like this couple hours prior to him calling EMS. This is not her baseline. The also mentioned that she was seen in the emergency room 2 days ago and was diagnosed with UTI. She was discharged home on antibiotic but the prescription was not filled. Patient was combative upon arrival. The last time patient was seen normal was not confirmed at this point. The was not present with her or in the department. Her toxicology screen is positive for amphetamines. 04-01 HAD MRI WAS STABLE EEG IS STABLE NOT ABLE TO GIVE MUCH HISTORY DENIES ANY DRUG USE RECENT UTI Hep-Lock IV Transfer out of ICU PT and OT to eval and treat Discussed with RN and patient Move out of ICU 04-02 CLEARED BY NEUROLOGY WANTS TO GO HOME DW RN AND PT AND CM AMBULATING DOES NOT NEED PSYCHIATRY CONSULT DC TO HOME TODAY - Time Spent with Patient Total time spent providing and/or coordinating discharge services: Greater than 30 minutes Exam Vital signs: Vital Signs 04/01/18 12:00 04/01/18 13:00 04/01/18 14:00 Temperature 98.6 F Pulse Rate 69 80 69 Respiratory Rate 19 20 22 Blood Pressure 126/63 158/80 H 138/70 Pulse Oximetry 98 97 99 04/01/18 15:00 04/01/18 16:00 04/01/18 17:00 Temperature 99.0 F Pulse Rate 66 64 60 Respiratory Rate 20 20 17 Blood Pressure 137/75 140/76 144/79 H Pulse Oximetry 04/01/18 18:00 04/01/18 19:00 04/01/18 20:00 Temperature 99.1 F Pulse Rate 76 66 62 Respiratory Rate 20 18 23 Blood Pressure 146/75 H 147/78 H 131/70 Pulse Oximetry 95 96 04/01/18 21:00 04/01/18 22:00 04/01/18 23:00 Temperature Pulse Rate 59 L 55 L 60 Respiratory Rate 22 20 22 Blood Pressure 157/79 H 153/67 H 137/90 Pulse Oximetry 96 98 100 04/02/18 00:00 04/02/18 01:00 04/02/18 02:00 Temperature Pulse Rate 73 62 54 L Respiratory Rate 16 22 10 L Blood Pressure 167/87 H 164/84 H 150/88 H Pulse Oximetry 100 94 L 100 04/02/18 03:00 04/02/18 04:00 04/02/18 05:00 Temperature 98.2 F Pulse Rate 56 L 52 L 53 L Respiratory Rate 15 12 13 Blood Pressure 126/66 146/68 H 120/59 L Pulse Oximetry 98 92 L 100 04/02/18 06:00 04/02/18 08:00 04/02/18 09:00 Temperature 98.3 F Pulse Rate 53 L 55 L 75 Respiratory Rate 15 18 20 Blood Pressure 165/70 H 120/60 Pulse Oximetry 93 L 98 94 L 04/02/18 10:00 Temperature Pulse Rate 65 Respiratory Rate 16 Blood Pressure 154/76 H Pulse Oximetry 99 Intake & Output 04/01/18 04/02/18 04/02/18 18:59 06:59 18:59 Intake Total 2049 480 / 480 Balance 2049 480 / 480 Weight 67.5 kg Intake: IV 850 / 850 D5W/Normal Saline Inj 1,000 ML 600 / 600 @ 154 mls/hr IV.SIG .Q6H30M [facility] Rx#:[id number] Levaquin 750 mg Premix Inj 150 150 / 150 ML @ 100 mls/hr IV.SIG Q24H [facility] Rx#:[id number] Magnesium Sulfate Inj 2 GM In 100 / 100 NS Inj 96 ML @ 50 mls/hr IV.SIG ONCE ONE Rx#:[id number] Oral 1200 / 1200 480 / 480 Other: # Voids 8 4 Narrative: GENERAL: Awake and alert talkative not so cooperative poor history SKIN: Warm and dry. HEAD: Atraumatic. Normocephalic. EYES: Pupils equal and round. No scleral icterus. No injection or drainage. EOMI ENT: No nasal bleeding or discharge. Mucous membranes pink and moist. Tongue is midline NECK: Trachea midline. No JVD. Supple CARDIOVASCULAR: Regular rate and rhythm. S1-S2 no S3 or S4 RESPIRATORY: No accessory muscle use. Clear to auscultation. Breath sounds equal bilaterally. GASTROINTESTINAL: Abdomen soft, non-tender, nondistended. Hepatic and splenic margins not palpable. MUSCULOSKELETAL: Extremities without clubbing, cyanosis, or edema. No obvious deformities. NEUROLOGICAL: Awake and alert. No obvious cranial nerve deficits. Motor grossly within normal limits. Five out of 5 muscle strength in the arms and legs. Normal speech. PSYCHIATRIC: Appropriate mood and affect; insight and judgment normal. Results Procedures completed during hospitalization: EEG Completed studies during hospitalization: Laboratory Results WBC 7.1 th/mm3 (4.0-11.0) 04/02/18 06:45 RBC 4.14 mil/mm3 (4.00-5.30) 04/02/18 06:45 Hgb 11.6 gm/dL (11.6-15.3) 04/02/18 06:45 Hct 34.4 % (35.0-46.0) L 04/02/18 06:45 MCV 83.0 fL (80.0-100.0) 04/02/18 06:45 MCH 28.0 pg (27.0-34.0) 04/02/18 06:45 MCHC 33.7 % (32.0-36.0) 04/02/18 06:45 RDW 14.8 % (11.6-17.2) 04/02/18 06:45 Plt Count 180 th/mm3 (150-450) 04/02/18 06:45 MPV 10.9 fL (7.0-11.0) 04/02/18 06:45 Neut % (Auto) 76.2 % (16.0-70.0) H 04/02/18 06:45 Lymph % (Auto) 14.8 % (9.0-44.0) 04/02/18 06:45 [place] % (Auto) 7.5 % (0.0-8.0) 04/02/18 06:45 Eos % (Auto) 0.9 % (0.0-4.0) 04/02/18 06:45 Baso % (Auto) 0.6 % (0.0-2.0) 04/02/18 06:45 Neut # (Auto) 5.4 th/mm3 (1.8-7.7) 04/02/18 06:45 Lymph # (Auto) 1.1 th/mm3 (1.0-4.8) 04/02/18 06:45 [place] # (Auto) 0.5 th/mm3 (0.0-0.9) 04/02/18 06:45 Eos # (Auto) 0.1 th/mm3 (0.0-0.4) 04/02/18 06:45 Baso # (Auto) 0.0 th/mm3 (0.0-0.2) 04/02/18 06:45 WBC Differential . 04/02/18 06:45 Differential Comment Auto diff final 04/02/18 06:45 PT 11.4 sec (9.8-11.6) 04/01/18 06:41 INR 1.1 Ratio 04/01/18 06:41 APTT 25.5 sec (24.3-30.1) 04/01/18 06:41 Sodium 139 meq/L (136-145) 04/02/18 05:39 Potassium 3.7 meq/L (3.5-5.1) 04/02/18 05:39 Chloride 106 meq/L (98-107) 04/02/18 05:39 Carbon Dioxide 22.5 meq/L (21.0-32.0) 04/02/18 05:39 Anion Gap 11 meq/L (5-15) 04/02/18 05:39 BUN 9 mg/dL (7-18) 04/02/18 05:39 Creatinine 0.63 mg/dL (0.50-1.00) 04/02/18 05:39 Estimated GFR Greater than 89 mL/min (>89) 04/02/18 05:39 POC Glucose 304 mg/dl (68-110) H 04/02/18 07:49 Random Glucose 225 mg/dL (74-106) H D 04/02/18 05:39 Hemoglobin A1c 8.7 % (4.3-6.0) H 04/01/18 06:41 Lactic Acid 2.0 mmol/L (0.4-2.0) 03/31/18 03:35 Calcium 7.9 mg/dL (8.5-10.1) L 04/02/18 05:39 Phosphorus 3.1 mg/dL (2.5-4.9) D 04/02/18 05:39 Magnesium 1.9 mg/dL (1.5-2.5) 04/02/18 05:39 Total Bilirubin 0.4 mg/dL (0.2-1.0) 04/02/18 05:39 AST 19 U/L (15-37) 04/02/18 05:39 ALT 18 U/L (10-53) 04/02/18 05:39 Alkaline Phosphatase 89 U/L (45-117) 04/02/18 05:39 Ammonia 17 mcmol/L (11-32) 04/01/18 06:41 Total Protein 6.2 g/dL (6.4-8.2) L 04/02/18 05:39 Albumin 2.8 g/dL (3.4-5.0) L 04/02/18 05:39 Amylase 35 U/L (25-115) 04/01/18 06:41 TSH 2.910 uIU/mL (0.358-3.740) 04/01/18 06:41 Free T4 0.85 ng/dL (0.76-1.46) 04/01/18 06:41 Urine Color Yellow (Yellw/Straw) 03/31/18 03:30 Urine Clarity Hazy (Clear) H 03/31/18 03:30 Urine pH 5.0 (5.0-8.5) 03/31/18 03:30 Ur Specific [place] 1.025 (1.002-1.035) 03/31/18 03:30 Urine Protein 30 mg/dL (Neg-Trace) H 03/31/18 03:30 Urine Glucose (UA) Negative mg/dL (Negative) 03/31/18 03:30 Urine Ketones 20 mg/dL (Negative) 03/31/18 03:30 Urine Occult Blood Negative (Negative) 03/31/18 03:30 Urine Nitrate Negative (Negative) 03/31/18 03:30 Urine Bilirubin Negative (Negative) 03/31/18 03:30 Urine Urobilinogen Less than 2 mg/dL (Less than 2) 03/31/18 03:30 Ur Leukocyte Esterase Trace (Negative) H 03/31/18 03:30 Urine RBC 1 /hpf (0-3) 03/31/18 03:30 Urine WBC 15 /hpf (0-5) H 03/31/18 03:30 Ur Squamous Epith Cells 1 /hpf (0-5) 03/31/18 03:30 Urine Bacteria Rare /hpf (None) H 03/31/18 03:30 Urine Mucus Few /lpf (Occasional) H 03/31/18 03:30 Micro UA Comment Cath-culture ind 03/31/18 03:30 Ur Microscopic Review Not Reportable 03/31/18 03:30 Urine Culture Comments Cath-cult indicated 03/31/18 03:30 Nasal Screen MRSA (PCR) Not detected (Negative) 03/31/18 08:45 Urine Opiates Screen Neg (Neg) 03/31/18 03:30 Ur Barbiturates Screen Neg (Neg) 03/31/18 03:30 Ur Amphetamines Screen Pos (Neg) H 03/31/18 03:30 U Benzodiazepines Scrn Neg (Neg) 03/31/18 03:30 Urine Cocaine Screen Neg (Neg) 03/31/18 03:30 U Cannabinoids Screen Neg (Neg) 03/31/18 03:30 Serum Alcohol Less than 3 mg/dL (0-5) 03/31/18 03:35 Hepatitis A IgM Ab Nonreactive (Nonreactive) 03/31/18 18:57 Hep Bs Antigen Nonreactive (Nonreactive) 03/31/18 18:57 Hep B Core IgM Ab Nonreactive (Nonreactive) 03/31/18 18:57 Hep C IgG Ab Nonreactive (Nonreactive) 03/31/18 18:57 Impressions Chest X-Ray 03/31/18 03:23 CONCLUSION: No acute cardiopulmonary process. Head CT 03/31/18 03:23 CONCLUSION: 1. No acute abnormality is seen. 2. Mild atrophy. . Head MRI 04/01/18 07:01 CONCLUSION: Negative MR Brain with and without contrast. Labs on day of discharge: Labs from last 24 hours 04/02/18 04/02/18 04/02/18 07:49 06:45 05:39 WBC 7.1 RBC 4.14 Hgb 11.6 Hct 34.4 L MCV 83.0 MCH 28.0 MCHC 33.7 RDW 14.8 Plt Count 180 MPV 10.9 Neut % (Auto) 76.2 H Lymph % (Auto) 14.8 [place] % (Auto) 7.5 Eos % (Auto) 0.9 Baso % (Auto) 0.6 Neut # (Auto) 5.4 Lymph # (Auto) 1.1 [place] # (Auto) 0.5 Eos # (Auto) 0.1 Baso # (Auto) 0.0 WBC Differential . Differential Comment Auto diff final Sodium 139 Potassium 3.7 Chloride 106 Carbon Dioxide 22.5 Anion Gap 11 BUN 9 Creatinine 0.63 Estimated GFR Greater than 89 POC Glucose 304 H Random Glucose 225 H D Hemoglobin A1c Calcium 7.9 L Phosphorus 3.1 D Magnesium 1.9 Total Bilirubin 0.4 AST 19 ALT 18 Alkaline Phosphatase 89 Total Protein 6.2 L Albumin 2.8 L 04/02/18 04/02/18 04/02/18 04:25 03:14 02:18 WBC RBC Hgb Hct MCV MCH MCHC RDW Plt Count MPV Neut % (Auto) Lymph % (Auto) [place] % (Auto) Eos % (Auto) Baso % (Auto) Neut # (Auto) Lymph # (Auto) [place] # (Auto) Eos # (Auto) Baso # (Auto) WBC Differential Differential Comment Sodium Potassium Chloride Carbon Dioxide Anion Gap BUN Creatinine Estimated GFR POC Glucose 112 H 72 92 Random Glucose Hemoglobin A1c Calcium Phosphorus Magnesium Total Bilirubin AST ALT Alkaline Phosphatase Total Protein Albumin 04/02/18 04/02/18 04/01/18 01:21 00:48 21:26 WBC RBC Hgb Hct MCV MCH MCHC RDW Plt Count MPV Neut % (Auto) Lymph % (Auto) [place] % (Auto) Eos % (Auto) Baso % (Auto) Neut # (Auto) Lymph # (Auto) [place] # (Auto) Eos # (Auto) Baso # (Auto) WBC Differential Differential Comment Sodium Potassium Chloride Carbon Dioxide Anion Gap BUN Creatinine Estimated GFR POC Glucose 90 12 L* 326 H Random Glucose Hemoglobin A1c Calcium Phosphorus Magnesium Total Bilirubin AST ALT Alkaline Phosphatase Total Protein Albumin 04/01/18 04/01/18 04/01/18 16:50 11:44 06:41 WBC RBC Hgb Hct MCV MCH MCHC RDW Plt Count MPV Neut % (Auto) Lymph % (Auto) [place] % (Auto) Eos % (Auto) Baso % (Auto) Neut # (Auto) Lymph # (Auto) [place] # (Auto) Eos # (Auto) Baso # (Auto) WBC Differential Differential Comment Sodium Potassium Chloride Carbon Dioxide Anion Gap BUN Creatinine Estimated GFR POC Glucose 108 172 H Random Glucose Hemoglobin A1c 8.7 H Calcium Phosphorus Magnesium Total Bilirubin AST ALT Alkaline Phosphatase Total Protein Albumin Preliminary micro results at discharge 03/31/18 03:35 Aerobic Blood Culture - Preliminary Blood - Peripheral No growth in 2 days Anaerobic Blood Culture - Preliminary No growth in 2 days 03/31/18 03:30 Aerobic Blood Culture - Preliminary Blood - Peripheral No growth in 2 days Anaerobic Blood Culture - Preliminary No growth in 2 days - Impressions ITS Impressions Chest X-Ray 03/31/18 03:23 CONCLUSION: No acute cardiopulmonary process. Head CT 03/31/18 03:23 CONCLUSION: 1. No acute abnormality is seen. 2. Mild atrophy. . Head MRI 04/01/18 07:01 CONCLUSION: Negative MR Brain with and without contrast. Discharge Plan - Discharge Disposition Patient Disposition: Discharge Home - Discharge Condition Condition: Good - Discharge Order Discharge Orders: Discharge Order (Routine); Ordered 04/02/18 Ordered By: Gopal Billings - Discharge Details Anticipated Discharge Date: 04/02/18 Discharge Comment: DC TO HOME TODAY - Physicians Team Primary Care Provider: Primary Care Physici,No Attending Provider: Gopal Billings Other Providers: Brant Conway MD, PhD
[2018-04-02 13:02] VITALS: BP 145/85; PULSE 70; RESP 20; TEMP 98.8
== END 2018-04-02 12:55 | disposition home or self-care (01) ==
LOC: NEPC 03:01 → NEDA 05:02 → HIMC 08:30
PROVIDERS: ADMIT Hospitalist; ATTEND Hospitalist